=== PATIENT | male | born 1945 | race Caucasian/White ===

== ENCOUNTER → 2017-10-03 13:56 | Outpatient (CLI) | payer MEDICARE, SELFPAY ==
--- NOTE | 2017-10-03 13:55 | DI.REPORT_ITS ---
SYMPTOM/DIAGNOSIS: CHEST DISCOMFORT WITH EKG CHANGES, RT BBB I45.10 PA AND LATERAL CHEST: Comparison is made with 15 March 2004. The heart size is normal. There is calcification in the aortic arch which is normal in diameter. The lungs are well inflated and clear. Osteophytes are incidentally noted in the spine. IMPRESSION: No acute abnormality.
== END ==
PROVIDERS: PCP Family Medicine; Visit Provider Family Medicine
DX: I45.10 Unspecified right bundle-branch block (principal); R07.89 Other chest pain
CPT/HCPCS: 71046

== ENCOUNTER → 2017-10-10 00:36 | Outpatient (CLI) | payer MEDICARE, SELFPAY ==
--- NOTE | 2017-10-10 11:30 | MERGEMPI_ITS ---
*[facility]* *[facility]* [address] [place] [address] Myocardial Perfusion Imaging - SPECT Frandy protocol Date of study: 10/10/2017 *PATIENT PRESENTATION* Height: 172.7cm (68in) Blood Pressure: Weight: 81.8kg (180lb) BSA: 2m^2 Referring physician: Derian Carter Ordering physician: Earnest Olivarez Impressions: Normal perfusion by Tc99m Sestamibi Imaging. Summary: 1. Myocardial perfusion imaging: No myocardial perfusion defects noted. 2. The calculated left ventricular ejection fraction after stress: 56%. No left ventricular regional motion abnormality. Indication: R07.2. History: REASON FOR TESTING: PT C/O STERNAL CHEST PAIN ON GETTING OOB IN THE AM, LIFTING A HEAVY OBJECT, OR WITH EXERTION. IN ADDITION, PT STATED THAT HIS WALKING SPEED HAS DECREASED BY 20% IN THE PAST YEAR. ALSO, RECENT DX WITH NEW RBBB ON EKG. PMH: ANGIOPLASTY X2 WITH TOTAL OF 6 STENTS, FAMILY HX: FATHER-3V CABG AT AGE 62. SMOKING: NEVER SMOKER. EXCERCISE: WALKS 3-4 HRS DAILY. Risk factors: Family history of coronary artery disease. Cholesterol: 205mg/dl. HDL: 69mg/dl. LDL: 124mg/dl. Triglycerides: 60mg/dl. ALLERGIES: ATENOLOL. MEDICATIONS: ASPIRIN 81 MG DAILY, ATORVASTATIN CALCIUM 80 MG DAILY, NITROGLYCERIN 0.4 MG NEEDED, PAROXETINE HCL 20 MG DAILY. Imaging Technique: Protocol: Frandy protocol. Acquisition: Gated SPECT; 1 day - rest/stress. The patient was imaged in the supine position. Attenuation correction used. Isotope administration: - Rest. Tc[99m]-sestamibi. Dose: 10mCi. Injection time: 11:25 AM. Injection to stress time: 00:45. - Stress. Tc[99m]-sestamibi. Dose: 32mCi. Injection time: 01:06 PM. 1-2 min before end of exercise Baseline ECG: LAST EKG 10/03/17-SINUS RHYTHM, RIGHT BUNDLE BRANCH BLOCK. TODAY'S EKG-SINUS ARRYTHMIA, FIRST DEGREE AVB, RBBB. Stress protocol: + +---+ +---+ !Stage !HR !BP (mmHg) !Sat! + +---+ +---+ !Baseline supine !71 !134/70 (91) !---! + +---+ +---+ !Baseline standing !72 !134/78 (97) !---! + +---+ +---+ !Stage I; 1.7mph, 10degrees; 3 min !114!156/80 (105)!96%! + +---+ +---+ !Stage II; 2.5mph, 12degrees; 3 min!128!170/80 (110)!---! + +---+ +---+ !Recovery; 1 min !97 !160/78 (105)!---! + +---+ +---+ !Recovery; 3 min !69 !148/78 (101)!---! + +---+ +---+ !Recovery; 6 min !69 !136/80 (99) !---! + +---+ +---+ * Stress results: The rate-pressure product for the peak heart rate and blood pressure was 56125lo Hg/min. Stress ECG: EXCERCISE TESTING ENDED IN 5 MINS, 50 SECS DUE TO FATIGUE. MAX HR WAS 128, 87% OF TARGET. HYPERTENSIVE BLOOD PRESSURE RESPONSE. METS: 7.05. ECTOPY: NONE NOTED. ANGINA: NO REPORTED CHEST PAIN OR PRESSURE. ISCHEMIA: ST CHANGES NOTED MINIMALLY IN V2, MORE PRONOUNCE IN V3. FUNCTIONAL CAPACITY: MILDLY DIMINISHED CAPACITY. Myocardial perfusion: Imaging information: gated. No myocardial perfusion defects noted. Ventricular Function (Wall Motion): The calculated left ventricular ejection fraction after stress: 56%. No left ventricular regional motion abnormality. Study data: Richmond Nagel MD supervised and was readily available during the procedure. This study was interpreted by [facility]. Study status: Routine. Consent: The risks, benefits, and alternatives to the procedure were explained to the patient and informed consent was obtained. Procedure: Initial setup. A baseline ECG was recorded. Surface ECG leads and manual cuff blood pressure measurements were monitored. Heart sounds: Normal. Lung sounds: Normal. Treadmill exercise testing was performed using the Frandy protocol. Study completion: All catheters inserted during the procedure were removed. The patient tolerated the procedure well and was discharged from the lab. Discharge: The patient left the laboratory in stable condition. Birthdate: Patient birthdate: 1945. Sex: Gender: male. Study date: Study date: 10/10/2017. Study time: 07:20 AM. Electronically signed by Richmond Nagel MD 10/10/2017 17:31
== END ==
PROVIDERS: PCP Family Medicine; Visit Provider Nurse Practitioner Gerontology
DX: R07.2 Precordial pain (principal); I45.10 Unspecified right bundle-branch block; Z95.5 Presence of coronary angioplasty implant and graft; Z82.49 Family history of ischemic heart disease and other diseases of the circulatory system
CPT/HCPCS: 78452; 93016 ×2; 93017; 93018 ×2

== ENCOUNTER 2021-01-20 02:45 | Outpatient (CLI) | payer MEDICARE, SELFPAY ==
[2021-01-20 10:54] LABS: ALT 38 U/L (16-63); AST 28 U/L (15-37); Albumin 3.8 g/dL (3.4-5.0); Alkaline Phosphatase 110 U/L (46-116); Anion Gap 8.7 mmol/L (3-11); BUN 20 mg/dL (7-18); CO2 29.3 mmol/L (21.0-32.0); CREATININE 1.1 mg/dL (0.70-1.30); Calcium 8.7 mg/dL (8.5-10.1); Calculated LDL 167 mg/dL (<100); Chloride 103 mmol/L (98-107); Cholesterol 249 mg/dL (<200); Glucose 95 mg/dL (74-106); HDL Cholesterol 60 mg/dL (40-60); Potassium 4.2 mmol/L (3.5-5.1); Sodium 141 mmol/L (136-145); Total Protein 7.3 g/dL (6.4-8.2); Triglyceride 113 mg/dL (<150)
== END 2021-01-20 02:46 | disposition home or self-care (01) ==
LOC: LBO 02:45
PROVIDERS: PCP Family Medicine; Visit Provider Family Medicine
DX: I25.10 Atherosclerotic heart disease of native coronary artery without angina pectoris (principal)
CPT/HCPCS: 36415; 80053; 80061

== ENCOUNTER 2022-04-13 02:12 | Outpatient (CLI) | payer MEDICARE, SELFPAY ==
[2022-04-13 12:15] LABS: Abs Immature Grans 0.05 10^3/uL (0.0-0.06); Absolute Basophil Count 0.02 10^3/uL (0.0-0.2); Absolute Eosinophil Count 0.25 10^3/uL (0.0-0.7); Absolute Lymphocyte Count 2.14 10^3/uL (1.2-3.4); Absolute Monocyte Count 0.59 10^3/uL (0.1-0.8); Basophils % 0.2; Eosinophils % 3.1; HCT 43.2 % (40.0-50.0); HGB 14.2 g/dL (13.5-17.5); Immature Grans % 0.6; Lymphocytes % 26.3; MCH 28.4 pg (27.0-33.0); MCHC 32.9 % (32.0-36.0); MCV 86 fL (80-95); MPV 9.9 fL (8.0-11.0); Monocytes % 7.2; Neutrophils % 62.6; Platelet Count 260 10^3/uL (130-400); RDW 12.5 % (11.8-14.1); RDW-SD 39.5 fL; WBC 8.15 10^3/uL (4.4-10.8)
[2022-04-13 13:11] LABS: ALT 30 U/L (16-63); AST 23 U/L (15-37); Albumin 3.6 g/dL (3.4-5.0); Alkaline Phosphatase 111 U/L (46-116); Anion Gap 7.4 mmol/L (3-11); BUN 25 mg/dL (7-18); Bilirubin, Total 0.8 mg/dL (0.2-1.0); CO2 31.6 mmol/L (21.0-32.0); Calcium 8.9 mg/dL (8.5-10.1); Chloride 105 mmol/L (98-107); Estimated GFR 77.04 (mL/min/1.73m2); Glucose 86 mg/dL (74-106); Potassium 3.7 mmol/L (3.5-5.1); Sodium 144 mmol/L (136-145); TSH (W/Ref FT4) 1.86 uIU/mL (0.36-3.74); Total Protein 7.4 g/dL (6.4-8.2); Vitamin B12 343 pg/mL (193-986)
[2022-04-13 17:58] LABS: CRP, High Sensitivity 8.17 mg/L (See Note)
== END 2022-04-13 02:13 | disposition home or self-care (01) ==
LOC: LOS 02:12
PROVIDERS: PCP Family Medicine; Visit Provider Family Medicine
DX: G62.9 Polyneuropathy, unspecified (principal); R45.86 Emotional lability
CPT/HCPCS: 36415; 80053; 86141; 82607; 84443; 85025

== ENCOUNTER 2022-05-15 13:53 | Emergency (ER) | payer MEDICARE, SELFPAY ==
[2022-05-15] VITALS (25 sets, daily range): BP systolic 117–170; BP diastolic 64–112; PULSE 73–93; RESP 11–20; TEMP 36.3; O2SAT 95–99
--- NOTE | 2022-05-15 13:45 | RT.EKG_ITS ---
APPROVED REPORT Exam: Resting ECG Reason for Exam: dizzy Patient Location: E HR:82 bpm ECG Measurements Heart Rate [address] 180 P 61 QRSd 140 QRS 9 QT 423 T 2 QTc 496 Conclusion Sinus rhythm. Multiple ventricular premature complexes. Right bundle branch block
--- NOTE | 2022-05-15 14:30 | DI.CT_ITS ---
Exam(s) CT BRAIN NECK CTA EXAM: CT BRAIN NECK CTA CLINICAL HISTORY: Dizziness, difficulty walking. TECHNIQUE: Imaging Protocol: Axial CT angiography was performed with multi-slice acquisition and mu lti-planar and 3D reconstructions. CONTRAST MATERIAL: Intravenous: Omnipaque 350 Contrast volume:structured data in ml COMPARISON: No exams were available for comparison FINDINGS: CT Head W/O and W contrast: Ventricles and Extra axial spaces: Normal in size and morphology for the patient's age. Hemorrhage: None. Cerebral parenchyma: Normal. Midline shift: None. Brainstem/Cerebellum: Normal. Calvarium: Normal. Visualized Paranasal sinuses/Mastoids: Mucosal thickening throughout sinuses. Opacification of the r ight flat frontal multiple ethmoid sinuses. Mastoid air cells are clear. Soft Tissues: Severe shows cyst noted in the posterior left occipital region. Enhancement: Normal. CTA Brain W: Internal Carotid Arteries: Petrous: Normal. Cavernous: Normal. Cerebral: Normal. Middle Cerebral Arteries: Right: No aneurysm, occlusion or significant stenosis. Left: No aneurysm, occlusion or significant stenosis. Anterior Cerebral Arteries: Right: No aneurysm, occlusion or significant stenosis. Left: No aneurysm, occlusion or significant stenosis. Posterior cerebral Arteries: Right: No aneurysm, occlusion or significant stenosis. Left: No aneurysm, occlusion or significant stenosis. Vertebral Arteries: Right: No aneurysm, occlusion or significant stenosis. Left: No aneurysm, occlusion or significant stenosis. Basilar Artery: No aneurysm, occlusion or significant stenosis. CTA Neck W: Common Carotid: Right: No dissection, occlusion or significant stenosis. Left: No dissection, occlusion or significant stenosis. External Carotid: Right: No dissection, occlusion or significant stenosis. Left: No dissection, occlusion or significant stenosis. Internal Carotid: Right: Mixed calcified and noncalcified plaque at proximal right internal carotid artery which is juanis rly occlusive. Contrast noted distal to this level and the caliber is normal distal to this level. No dissection. Left: No dissection, occlusion or significant stenosis. Vertebral Artery: Right: No dissection, occlusion or significant stenosis. Left: No dissection, occlusion or significant stenosis. Lung Apices: Normal. Bones: No acute abnormality. Degenerative changes. Soft Tissues: Normal. IMPRESSION: 1. Normal CTA examination of the [place] of [place]. 2. CT: Sinus disease. Sebaceous cyst. No acute abnormality. Critical stenosis proximal right int ernal carotid artery secondary to significant plaque.. RADIATION DOSE DELIVERED: 2,177.33mGy.cm Total DLP DATA REPOSITORY: All CT scans at this facility are submitted to the National Radiology Data Registry (NRDR) Dose Index Registry (DIR) with the [employer] (ACR). RADIATION OPTIMIZATION: All CT scans at this facility use at least one of these dose optimization te chniques: automated exposure control; mA and/or kV adjustment per patient size (includes targeted exa ms where dose is matched to clinical indication); or iterative reconstruction.
[2022-05-15 14:44] LABS: Abs Immature Grans 0.04 10^3/uL (0.0-0.06); Absolute Basophil Count 0.03 10^3/uL (0.0-0.2); Absolute Eosinophil Count 0.24 10^3/uL (0.0-0.7); Absolute Lymphocyte Count 1.76 10^3/uL (1.2-3.4); Absolute Neutrophil Count 5.01 10^3/uL (1.2-6.7); Basophils % 0.4; Eosinophils % 3.1; HCT 40.6 % (40.0-50.0); HGB 13.7 g/dL (13.5-17.5); Immature Grans % 0.5; Lymphocytes % 22.9; MCH 28.5 pg (27.0-33.0); MCHC 33.7 % (32.0-36.0); MCV 84 fL (80-95); MPV 9.4 fL (8.0-11.0); Monocytes % 7.8; Neutrophils % 65.3; Platelet Count 200 10^3/uL (130-400); RBC 4.81 10^6/uL (4.36-5.78); RDW 12.5 % (11.8-14.1); RDW-SD 38.1 fL; WBC 7.68 10^3/uL (4.4-10.8)
[2022-05-15] MEDS: Meclizine 25 MG TAB PO (14:44)
[2022-05-15 15:02] LABS: ALT 28 U/L (16-63); AST 20 U/L (15-37); Albumin 3.3 g/dL (3.4-5.0); Alkaline Phosphatase 103 U/L (46-116); Anion Gap 7.5 mmol/L (3-11); BUN 21 mg/dL (7-18); Bilirubin, Total 0.6 mg/dL (0.2-1.0); CO2 29.5 mmol/L (21.0-32.0); CREATININE 1.2 mg/dL (0.70-1.30); Calcium 8.5 mg/dL (8.5-10.1); Chloride 107 mmol/L (98-107); Glucose 117 mg/dL (74-106); Magnesium 2.1 mg/dL (1.8-2.4); Potassium 3.7 mmol/L (3.5-5.1); Sodium 144 mmol/L (136-145); Total Protein 6.8 g/dL (6.4-8.2); Troponin I < 50 ng/L (<or=60)
[2022-05-15] MEDS: Normal Saline - Diluent 50 ML VIAL IJ (15:23)
[2022-05-15] MEDS: Omnipaque 350 MG/ML 100 ML BTL 85 ML IJ (15:23)
[2022-05-15] MEDS: Normal Saline Flush 10 ML SYR IVP (15:24)
--- NOTE | 2022-05-15 15:42 | ED.PROG_ITS ---
Date of service: 05/15/22 Time of Service: 15:42 Medical Decision Making I received signout on this elderly gentleman with vascular risk factors in the emergency department with dizziness and difficulty balancing since this morning. He reportedly had a normal CT head and is pending a CTA of his head and neck. Unfortunately MRIs not available. His original provider will touch base with him concerning the possibility of transfer for MRI to assess for TIA versus acute ischemic stroke. We will update documentation following CTA report. 4:30 PM According to the patient's original provider he would prefer to stay for observation if his CTA showed no acute abnormalities. His preliminary virtual radiology report is as follows: 1. No acute intracranial hemorrhage, mass effect or midline shift. 2. 2.9 cm subcutaneous cystic lesion in the left occipital region, possibly a large sebaceous cyst. Correlate with physical examination findings and compare with prior imaging. 3. Paranasal sinus disease noted. IMPRESSION: No large vessel stenosis or occlusion. IMPRESSION: 1. Apparent complete occlusion of the origin of the right ICA, although there may be trace flow present which is not visible. This is secondary to significant atherosclerotic plaque. 2. No dissection. We will have images pushed to [facility] neurology. 4:45 PM I met with the patient and he explained what had happened. He said that he was taking a 3 mile walk. This is a typical habit for the patient. He stopped for a break and subsequently had trouble walking. He felt as if he was drunk. He says that this occurs in the setting of worsening balance issues over the past several weeks. He also inadvertently was bumping into furniture at home which led him to come into the emergency department. He reports taking no routine medications. He is status post remote angiography in the setting of coronary artery disease. He is not a diabetic. He reports that his cyst in his left occipital region is known. On exam patient he is alert and oriented. He has no significant visual changes, no aphasia, no neglect. He has no dysmetria dysdiadochokinesia. His finger rolling is intact. He had a negative Romberg and he has no significant truncal ataxia. We will complete an ambulatory trial in the ED prior to touching base with [facility]. Anticipate discharge with outpatient MRI. Patient's strong preference is to be discharged as he is the care provider for his diabetic and he manages her medications. 5:33pm I spoke to Dr. Bradshaw from neuro at [facility]. She advised that the most conservative approach would be to hospitalize the patient. I advised her that the patient did not want hospitalization. As result, Dr. Bradshaw will have the patient seen in the TIA clinic at [facility]. Will initiate aspirin therapy for the next 5 days at 81 mg daily. I will order an MRI brain for the patient and have the patient seen by his primary care provider for a Holter monitor and an echocardiogram. I have asked health natural gas treating unit operator Ramila to have the patient seen by his primary care within the week for Holter monitor and an echocardiogram. I signed the form for MRI brain without contrast. If the patient has an acute ischemic CVA on MR my recommendation would be to contact [facility] for recommendations for secondary. If the patient's MRI is negative he can follow-up with his primary care provider. I also discharged him on meclizine as he did feel some symptomatic improvement in the ED. Discharge Plan Disposition Patient Disposition: Home Discharge Details Clinical Impression: Loss of balance Primary Care Provider: Earnest Olivarez ED Provider: Armando Cheek [place] Meds and New Rx's Prescriptions: New aspirin 81 mg capsule 81 mg PO DAILY Qty: 30 0RF meclizine 25 mg tablet 25 mg PO DAILY PRNQty: 30 0RF Discharge Instructions Additional Instructions: You were seen in the emergency department for your weakness and loss of balance. You are being prescribed a medicine which you can take for dizziness. There is also concern that you could have had a small stroke??a transient ischemic attack or an actual stroke. You are being scheduled for an MRI which will be completed next week. You will be seen in follow-up at [facility] in their transient ischemic attack clinic. Please schedule an appointment with your primary care provider next week. You are also receiving a prescription for aspirin which you should take as directed until seen by your primary care provider. You are also receiving a medication which you can take as needed for dizziness. If this medication does not help your dizziness please do not take it. This medication is called meclizine. Please return to the emergency department if develop weakness any trouble speaking or have any other concerns.
--- NOTE | 2022-05-15 15:47 | ED.GENADUL_ITS ---
Discharge Plan Disposition Patient Disposition: Home Discharge Details Clinical Impression: Loss of balance Primary Care Provider: Earnest Olivarez ED Provider: Armando Cheek Home Meds and New Rx's Prescriptions: New aspirin 81 mg capsule 81 mg PO DAILY Qty: 30 0RF meclizine 25 mg tablet 25 mg PO DAILY PRNQty: 30 0RF Discharge Instructions Additional Instructions: You were seen in the emergency department for your weakness and loss of balance. You are being prescribed a medicine which you can take for dizziness. There is also concern that you could have had a small stroke??a transient ischemic attack or an actual stroke. You are being scheduled for an MRI which will be completed next week. You will be seen in follow-up at [facility] in their transient ischemic attack clinic. Please schedule an appointment with your primary care provider next week. You are also receiving a prescription for aspirin which you should take as directed until seen by your primary care provider. You are also receiving a medication which you can take as needed for dizziness. If this medication does not help your dizziness please do not take it. This medication is called meclizine. Please return to the emergency department if develop weakness any trouble speaking or have any other concerns. Discharge Data Discharge Date/Time-TO BE ENTERED AT DEPARTURE: 05/15/22 18:06 Medical Decision Making Patient presenting to the emergency department for chief complaint of feeling off and difficulty walking. Patient stated this started around 9 AM this morning when he went to stand up after sitting down for meeting. Patient denies any headache chest pain shortness of breath difficulty breathing or other symptoms. States that he had a difficult time walking along with going up stairs after the event. Again patient adamantly denies all other symptoms. Physical exam does show horizontal nystagmus to left lateral gaze, negative Tonja- Hallpike, normal HEENT exam, no obvious abnormalities noted on cranial nerve exam, slight weakness noted to left lower extremity but otherwise no sensory Tory changes, negative Romberg's, exam otherwise unremarkable. Patient does have significant past history of coronary artery disease, hearing loss, esotropia and blindness of the right eye and hearing loss. We will plan on checking labs EKG and CTA imaging of the head. At this time unfortunately no MRI imaging is available. Review of patient's labs show an unremarkable nondiagnostic CBC, BUN slightly elevated at 21 with glucose of 117 otherwise negative, negative troponin, patient still pending urinalysis. Pending CTA imaging results discussed with patient no MRI availability patient did state that he would rather have additional testing while he is here will be admitted for observation if possible pending availability advanced testing if needed. Lab Data Lab results reviewed: Yes I reviewed the patient's lab results. HPI General Mode of arrival: ambulatory . Date/Time Provider Initiated Documentation: 05/15/22 14:09 . Limitations to Documentation: no limitations . Information obtained by: patient and RN notes reviewed . History of Present Illness 77 year old M presents to the emergency department with the chief complaint of Abnormal walking and weakness, described as moderate, Quality is described as other (Denies pain or discomfort), Patient started ex periencing this hour(s) (5) and it has been constant. No relieving factors improve symptom(s), Other factors that worsen symptoms (Standing up) . Patient notes no other symptoms.. Patient did receive the following treatments prior to arrival, none Related Data Home Medications Medication Instructions Recorded Confirmed aspirin 81 mg capsule 81 mg PO DAILY #30 caps 05/15/22 meclizine 25 mg tablet 25 mg PO DAILY PRN #30 tabs 05/15/22 Previous Rx's Medication Instructions Recorded aspirin 81 mg capsule 81 mg PO DAILY #30 caps 05/15/22 meclizine 25 mg tablet 25 mg PO DAILY PRN #30 tabs 05/15/22 Allergies Allergy/AdvReac Type Severity Reaction Status Date / Time atenolol AdvReac Intermediate near Verified 05/15/22 14:10 syncope tree pollen Allergy Uncoded 05/15/22 14:10 General Stated Complaint: Dizzy/Sync DAMARIS: 3 Review of Systems Constitutional Constitutional: Denies body ache(s), Denies chills, Denies fever(s), Denies headache(s) and Denies weakness Eyes Eyes: Denies change in vision ENT Ears, Nose, Mouth, and Throat: Denies vertigo, Reports dizziness and Denies headache(s) Cardiovascular Cardiovascular: Denies chest pain and Denies syncope Gastrointestinal Gastrointestinal: Reports nausea and Reports vomiting Neurologic Neurologic: Reports as per HPI, Denies vertigo, Reports dizziness, Denies syncope, Denies headache(s), Denies sensory deficit and Denies weakness PFSH All Active Problems (Updated 05/15/22 @ 17:47 by Armando Cheek MD) Loss of balance (Acute) Sebaceous cyst (Acute) Peripheral neuropathy (Acute) Corns and callosities (Acute) Pain, foot (Acute) Nail dystrophy (Acute) Impacted cerumen, bilateral (Acute) Depressive disorder, not elsewhere classified (Chronic 02/21/96) paxil just PRN negative thoughts ~6-7/month Sensorineural hearing loss, bilateral (Acute 07/25/14) Mood disturbance (Acute 11/23/16) intermittent Paroxetine rx since <1996, Mona Cutforth initially; uses Paroxetine 2-3 days for bad mood, ankur winter; also rx with exercise, walking 8-10 miles/day Other and unspecified hyperlipidemia (Acute 07/22/02) goal <70, known CAD; stopped lipitor 2013 Hearing loss (Acute 08/21/00) hearing aids Conductive hearing loss, external ear (Acute 07/25/14) Coronary atherosclerosis of cachil dehe coronary vessel (Acute 07/22/02) STENT X2 07/24; X4 06/24; NEAR SYNCOPE 08/30 DECR ATENOLOL TO 25 MG/D; and he stopped it altogether Medical History Pneumonia Hospitalized with PNA, when? Syncope and collapse (~2011) Cardiac evaluation .. Surgical History H/O angioplasty H/O vasectomy Family History Mother , heart issues at age 85. Heart disease Sister Primary lung cancer smoker Brother Bladder cancer Brother Cancer head tumor Social History Smoking/Tobacco Use Status: Never Smoking risk assessment performed?: Yes Alcohol Intake: current Alcohol Intake frequency: 0-2 drinks per day Alcohol type: wine Drug use: Never Substance use type: does not use Adopted: No Caregiver/Support person: No Foster care: No Household members: spouse Housing: house Number of Children: 5 number of grandchildren: 4 Communication Needs: Hard of Hearing and Corrective Lenses Education Level: master's degree Do you need help understanding health information?: Rarely current occupation: retired Pets and animals: No Sexually active: Yes Do you think of yourself as: straight/heterosexual Current gender identity: male What is your relationship status?: How often do you talk on the phone with friends or family?: twice per week How often do you get together with friends or relatives?: once per week Do you belong to any clubs or organized social groups?: no Panel score (0-1 are the most socially isolated patients): 2 What type of physical activity do you participate in: walking Duration: > 90 minutes/day Frequency: daily Nora/Christian: Alevism Special nora needs: No Seatbelt use: always Helmet use: Yes Drive intox or ride w/intox mobile lounge driver or operator: No Do you feel safe at home: Yes Do you feel safe in your relationship?: Yes Additional Social history: at bedside. Exam Const General: cooperative, no acute distress and well groomed Orientation: alert, awake and oriented x3 HENMT Head: normal to inspection Ears: hearing grossly normal bilaterally and TM's normal bilaterally Mouth: oral mucosae normal and moist mucous membranes Throat: posterior oropharynx normal Eyes Alignment and Position: alignment abnormal right esotropia Periorbital: periorbital findings normal Eyelids: eyelids normal Sclera: sclerae normal Cornea: corneas normal EOM: nystagmus (Horizontal- left eye to left lateral gaze) Neck Neck: normal visual inspection, full ROM and no meningeal signs Resp Effort & Inspection: normal respiratory effort and able to speak in complete sentences Auscultation: clear to auscultation bilaterally Cardio Rate: regular rate Rhythm: regular rhythm Heart Sounds: S1 normal and S2 normal Neuro General: patient alert, patient awake, patient oriented x3, tone normal, moves all extremities, CN's II-XI intact bilaterally and not confused Cranial Nerves: nystagmus (Horizontal- left eye to left lateral gaze) Cognition: normal cognition Speech: speech normal Motor: muscle tone normal throughout, no pronator drift, no movement abnormalities noted, no fasciculations and strength abnormal left distal lower extremity Sensory Exam: no sensory deficits noted Coordination: Romberg test normal and Does not sway with eyes open Course Vital Signs Vital signs: Vital Signs Temperature 36.3 C L 05/15/22 13:58 Pulse 81 05/15/22 13:58 Respiratory Rate 20 05/15/22 13:58 Blood Pressure 139/112 H 05/15/22 13:58 Pulse Oximetry 98 05/15/22 13:58 Temperature 36.3 C L 05/15/22 13:58 Pulse 81 05/15/22 13:58 Respiratory Rate 12 05/15/22 14:16 Respiratory Effort Normal, Non-Labored 05/15/22 14:16 Respiratory Depth Normal 05/15/22 14:16 Respiratory Pattern Normal 05/15/22 14:16 Blood Pressure 139/112 H 05/15/22 13:58 Blood Pressure Position Sitting 05/15/22 13:58 Pulse Oximetry 98 05/15/22 13:58 Lab/Test Results Lab/Test Results: Laboratory Tests Range/Units 05/15/22 05/15/22 14:35 14:35 WBC (4.4-10.8) 10^3/uL 7.68 RBC (4.36-5.78) 10^6/uL 4.81 Hgb (13.5-17.5) g/dL 13.7 Hct (40.0-50.0) % 40.6 MCV (80-95) fL 84 MCH (27.0-33.0) pg 28.5 MCHC (32.0-36.0) % 33.7 RDW (11.8-14.1) % 12.5 Plt Count (130-400) 10^3/uL 200 MPV (8.0-11.0) fL 9.4 Immature Gran % 0.5 Neutrophils % 65.3 Lymphocytes % 22.9 Monocytes % 7.8 Eosinophils % 3.1 Basophils % 0.4 Nucleated RBC % (0.0-0.3) % 0.0 Absolute Neutrophils (1.2-6.7) 10^3/uL 5.01 Absolute Lymphocytes (1.2-3.4) 10^3/uL 1.76 Absolute Monocytes (0.1-0.8) 10^3/uL 0.60 Absolute Eosinophils (0.0-0.7) 10^3/uL 0.24 Absolute Basophils (0.0-0.2) 10^3/uL 0.03 Sodium (136-145) mmol/L 144 Potassium (3.5-5.1) mmol/L 3.7 Chloride (98-107) mmol/L 107 Carbon Dioxide (21.0-32.0) mmol/L 29.5 Anion Gap (3-11) mmol/L 7.5 BUN (7-18) mg/dL 21 H Creatinine (0.70-1.30) mg/dL 1.2 Est GFR (CKD-EPI 2020) (mL/min/1.73m2) 61.90 Glucose (74-106) mg/dL 117 H Calcium (8.5-10.1) mg/dL 8.5 Magnesium (1.8-2.4) mg/dL 2.1 Total Bilirubin (0.2-1.0) mg/dL 0.6 AST (15-37) U/L 20 ALT (16-63) U/L 28 Alkaline Phosphatase (46-116) U/L 103 Troponin I (<or=60) ng/L < 50 Total Protein (6.4-8.2) g/dL 6.8 Albumin (3.4-5.0) g/dL 3.3 L PAWSS Have you Been Recently Intoxicated or Drunk Within the Last 30 days?: No Have you Ever Experienced Previous Episodes of Alcohol Withdrawal?: No Have you ever Experienced Withdrawal Seizures?: No Have you ever Experienced Delirium Tremens(DT)s?: No Have you ever undergone Alcohol Rehabilitation Treatment (i.e, inpt ot outpatient treatment programs)?: No Have you ever Experienced Blackouts?: No Have you ever Combined Alcohol with other Downers within the last 90 days?: No Have you ever Combined Alcohol with any other Substance of Abuse during the last 90 days?: No Positive Blood Alcohol level on Presentation? [PCS.BAL]: No Evidence of Increased Autonomic Activity (i.e. HR>120, tremor, sweating, agitation, nausea)?: No Result: 0
[2022-05-15 15:57] LABS: Bilirubin Negative (Negative); Blood Negative (Negative); Clarity Clear (Clear); Glucose Negative (Negative); Ketones Negative (Negative); Leukocyte Esterase Negative (Negative); Nitrite Negative (Negative); Specific Gravity 1.025 (1.005-1.025); Urobilinogen 0.2 mg/dL (Up to 0.2)
--- NOTE | 2022-05-15 16:27 | DI.VRAD_ITS ---
PROCEDURE INFORMATION: Exam: CT Head Without Contrast Exam date and time: 05/15/2022 3:21 PM Clinical indication: Dizziness and giddiness; Patient HX: Dizziness, difficulty walking TECHNIQUE: Imaging protocol: Computed tomography of the head without contrast. COMPARISON: No relevant prior studies available. FINDINGS: Brain: There is no acute intracranial hemorrhage, mass effect or midline shift. There is no large acute territorial cerebral infarct. Cerebral ventricles: No ventriculomegaly. Paranasal sinuses: Visualized sinuses are unremarkable. No fluid levels. Mastoid air cells: Visualized mastoid air cells are well aerated. Bones/joints: No acute fracture. There is prominent mucosal thickening in the paranasal sinuses, greatest in the right frontal, bilateral ethmoid regions. Soft tissues: There is a 2.9 x 2.7x 2.0 cm cystic structure in the subcutaneous tissues of left occipital region. IMPRESSION: 1. No acute intracranial hemorrhage, mass effect or midline shift. 2. 2.9 cm subcutaneous cystic lesion in the left occipital region, possibly a large sebaceous cyst. Correlate with physical examination findings and compare with prior imaging. 3. Paranasal sinus disease noted. PROCEDURE INFORMATION: Exam: CTA Head With Contrast, Arteriography Exam date and time: 05/15/2022 3:21 PM Age: 77 years old Clinical indication: Dizziness and giddiness; Patient HX: Dizziness, difficulty walking TECHNIQUE: Imaging protocol: Computed tomographic angiography of the head with contrast. Exam focused on the arteries. 3D rendering (Not supervised by radiologist): MIP and/or 3D reconstructed images were created by the technologist. COMPARISON: No relevant prior studies available. FINDINGS: ANTERIOR CIRCULATION: Right internal carotid artery: Intracranial segment is patent with no significant stenosis. No aneurysm. Right middle cerebral artery: No occlusion or significant stenosis. No aneurysm. Right anterior cerebral artery: No occlusion or significant stenosis. No aneurysm. Left internal carotid artery: Intracranial segment is patent with no significant stenosis. No aneurysm. Left middle cerebral artery: No occlusion or significant stenosis. No aneurysm. Left anterior cerebral artery: No occlusion or significant stenosis. No aneurysm. POSTERIOR CIRCULATION: Right vertebral artery: No occlusion or significant stenosis. No aneurysm. Left vertebral artery: No occlusion or significant stenosis. No aneurysm. Basilar artery: No occlusion or significant stenosis. No aneurysm. Right posterior cerebral artery: No occlusion or significant stenosis. No aneurysm. Left posterior cerebral artery: No occlusion or significant stenosis. No aneurysm. Brain: No definite mass, mass effect, or midline shift. Cerebral ventricles: No ventriculomegaly. Bones/joints: Unremarkable. No acute fracture. Soft tissues: Unremarkable. IMPRESSION: No large vessel stenosis or occlusion. PROCEDURE INFORMATION: Exam: CTA Neck With Contrast Exam date and time: 05/15/2022 3:21 PM Age: 77 years old Clinical indication: Dizziness and giddiness; Patient HX: Dizziness, difficulty walking TECHNIQUE: Imaging protocol: Computed tomographic angiography of the neck with contrast. 3D rendering (Not supervised by radiologist): MIP and/or 3D reconstructed images were created by the technologist. COMPARISON: CR CHEST 2 VIEWS PA,LAT 10/03/2017 1:55 PM FINDINGS: Right common carotid artery: No stenosis. No dissection or occlusion. Right internal carotid artery: There is apparent occlusion of the origin of right ICA secondary to significant atherosclerotic plaque. However there may be trace flow in this region due to adjacent contrast distally. Right external carotid artery: No occlusion or stenosis of the origin. Left common carotid artery: No stenosis. No dissection or occlusion. Left internal carotid artery: No stenosis of the extracranial segment. No dissection or occlusion. Left external carotid artery: No occlusion or stenosis of the origin. Right vertebral artery: No stenosis. No dissection or occlusion. Left vertebral artery: No stenosis. No dissection or occlusion. Soft tissues: Normal. No significant soft tissue swelling. Bones/joints: No acute fracture. IMPRESSION: 1. Apparent complete occlusion of the origin of the right ICA, although there may be trace flow present which is not visible. This is secondary to significant atherosclerotic plaque. 2. No dissection. REFERENCES: NASCET CRITERIA. The degree of stenosis in the cervical segment of the internal carotid artery is based on NASCET criteria. Normal is no stenosis. Mild is less than 50% stenosis. Moderate is 50-69% stenosis. Severe is 70% to 99% stenosis. Total occlusion is no detectable patent lumen. Dictated and Authenticated by: Keiko Jennings MD. Ordering:AMEENA Dash MD
--- NOTE | 2022-05-15 17:47 | NUR.NOTE ---
Referral made by Dr. Cheek for patient to follow up in one week with PCP for weakness, patient will need a holter monitor and an Echo. Put the referral in the caremanger's box for assistance.Nursing Note:
[2022-05-15] MEDS: Aspirin 81 MG CHEW PO (18:00)
== END 2022-05-15 18:06 | disposition home or self-care (01) ==
PROVIDERS: Nurse Practitioner Family; Emergency Provider Emergency Medicine; PCP Family Medicine
DX: R26.2 Difficulty in walking, not elsewhere classified (principal); H55.00 Unspecified nystagmus; H50.00 Unspecified esotropia
CPT/HCPCS: 36415; 70496; 70498; 80053; 93005; 99285; 81003; 83735; 84484; 85025; 93010; 99284; J3490

== ENCOUNTER 2022-05-16 12:08 | Observation (INO) | payer MEDICARE, SELFPAY ==
[2022-05-16 12:22] VITALS: BP 152/61; PULSE 64; RESP 18; O2SAT 98
--- NOTE | 2022-05-16 12:30 | DI.CT_ITS ---
Exam(s) CT HEAD WO EXAM: CT HEAD WO CLINICAL HISTORY: Slurred speech. TECHNIQUE: Imaging Protocol: Axial computed tomography images with coronal and sagittal reformatted images were created and reviewed COMPARISON: CT CT BRAIN NECK CTA from 05/15/2022 FINDINGS: Ventricles and Extra axial spaces: Normal in size and morphology for the patient's age. Hemorrhage: None. Cerebral parenchyma: Minimal white matter changes of small vessel disease. Midline shift: None. Brainstem/Cerebellum: Normal. Calvarium: Normal. Visualized Paranasal sinuses/Mastoids: Clear. Soft Tissues: Large sebaceous cyst left upper neck. IMPRESSION: No acute intracranial process. RADIATION DOSE DELIVERED: 748.05mGy.cm Total DLP DATA REPOSITORY: All CT scans at this facility are submitted to the National Radiology Data Registry (NRDR) Dose Index Registry (DIR) with the [employer] ([employer]). RADIATION OPTIMIZATION: All CT scans at this facility use at least one of these dose optimization te chniques: automated exposure control; mA and/or kV adjustment per patient size (includes targeted exa ms where dose is matched to clinical indication); or iterative reconstruction.
--- NOTE | 2022-05-16 13:40 | DI.VRAD_ITS ---
PROCEDURE INFORMATION: Exam: CT Head Without Contrast Exam date and time: 05/16/2022 1:17 PM Age: 77 years old Clinical indication: Speech disturbance; Slurred speech; Patient HX: PT had cta head/neck 1 day prior TECHNIQUE: Imaging protocol: Computed tomography of the head without contrast. Radiation optimization: All CT scans at this facility use at least one of these dose optimization techniques: automated exposure control; mA and/or kV adjustment per patient size (includes targeted exams where dose is matched to clinical indication); or iterative reconstruction. COMPARISON: CT BRAIN NECK CTA 05/15/2022 3:21 PM FINDINGS: Brain: No acute intracranial hemorrhage.. There is mild diffuse heterogeneity of the white matter attenuation, consistent with chronic white matter ischemic changes. Mild cerebral atrophy Cerebral ventricles: No ventriculomegaly. Paranasal sinuses: Opacities in the ethmoid sinuses and maxillary sinuses and sphenoid sinuses may represent sinusitis Mastoid air cells: Visualized mastoid air cells are well aerated. Bones/joints: See Soft tissues finding. Soft tissues: 2.7 cm soft tissue mass in the posterior extra calvarial soft tissues. Series 2, image 3 IMPRESSION: No acute intracranial hemorrhage.. Dictated and Authenticated by: Cortez Proctor MD. Ordering:AMEENA Dash MD
--- NOTE | 2022-05-16 14:17 | ED.GENADUL_ITS ---
Discharge Plan Disposition Patient Disposition: Admit to [facility] Discharge Details Clinical Impression: Loss of balance, Suspected cerebrovascular accident Primary Care Provider: Earnest Olivarez ED Provider: Hardy Jeffrey Home Meds and New Rx's Prescriptions: No Action aspirin 81 mg capsule 81 mg PO DAILY Qty: 30 0RF meclizine 25 mg tablet 25 mg PO DAILY PRNQty: 30 0RF Medical Decision Making Patient representing to the emergency department for chief complaint of worsening weakness and intermittent slurred speech. Patient was seen by myself yesterday for loss of balance. Patient was signed out to Dr. Cheek who offered patient admission for further monitoring and further testing including MRI imaging when available. At that time patient refused admission and stated he would prefer to go home. Due to having worsening of symptoms today he is representing to the emergency department. He denies any headache, syncope, ch est pain or other drastic changes in symptoms. On yesterday's CTA there was noted a per radiologist report an apparent complete occlusion of the origin of the right ICA, although there may be trace flow present which is not visible. This is secondary to significant atherosclerotic plaque. Physical exam today shows only slightly increased weakness of the left lower extremity but no other changes in exam noted today. We will plan on repeating head CT imaging but I do feel that it would be beneficial for patient to stay for MRI imaging and further monitoring given worsening of symptoms. Even at presentation yesterday patient was outside the window for thrombolytics so patient is not a candidate for any emergent interventions at this time. Patient denies any pain or discomfort at my time of assessment. Review of repeat CT imaging shows no acute intracranial abnormality in comparison of yesterday's scan. Will contact hospitalist to discuss admission of patient for further monitoring and MRI imaging when available. Patient is in agreement with this plan of care. Imaging Data Radiologic Study: Imaging: CT Scan Radiologist's impression: Exam(s) PROCEDURE INFORMATION: Exam: CT Head Without Contrast Exam date and time: 05/16/2022 1:17 PM Age: 77 years old Clinical indication: Speech disturbance; Slurred speech; Patient HX: PT had cta head/neck 1 day prior TECHNIQUE: Imaging protocol: Computed tomography of the head without contrast. Radiation optimization: All CT scans at this facility use at least one of these dose optimization techniques: automated exposure control; mA and/or kV adjustment per patient size (includes targeted exams where dose is matched to clinical indication); or iterative reconstruction. COMPARISON: CT BRAIN NECK CTA 05/15/2022 3:21 PM FINDINGS: Brain: No acute intracranial hemorrhage.. There is mild diffuse heterogeneity of the white matter attenuation, consistent with chronic white matter ischemic changes. Mild cerebral atrophy Cerebral ventricles: No ventriculomegaly. Paranasal sinuses: Opacities in the ethmoid sinuses and maxillary sinuses and sphenoid sinuses may represent sinusitis Mastoid air cells: Visualized mastoid air cells are well aerated. Bones/joints: See Soft tissues finding. Soft tissues: 2.7 cm soft tissue mass in the posterior extra calvarial soft tissues. Series 2, image 3 IMPRESSION: No acute intracranial hemorrhage.. HPI General Mode of arrival: wheelchair . Date/Time Provider Initiated Documentation: 05/16/22 12:09 . Limitations to Documentation: no limitations . Information obtained by: patient, family and RN notes reviewed . History of Present Illness 77 year old M presents to the emergency department with the chief complaint of Increased weakness, described as moderate and similar to prior episodes, and is localized to the lower extremity. Patient reports no radiation. and it has been constant. No relieving factors improve symptom(s), No exacerbating factors reported . Patient notes no other symptoms.. Patient did receive the following treatments prior to arrival, none Related Data Home Medications Medication Instructions Recorded Confirmed aspirin 81 mg capsule 81 mg PO DAILY #30 caps 05/15/22 05/16/22 meclizine 25 mg tablet 25 mg PO DAILY PRN #30 tabs 05/15/22 05/16/22 Previous Rx's Medication Instructions Recorded aspirin 81 mg capsule 81 mg PO DAILY #30 caps 05/15/22 meclizine 25 mg tablet 25 mg PO DAILY PRN #30 tabs 05/15/22 Allergies Allergy/AdvReac Type Severity Reaction Status Date / Time atenolol AdvReac Intermediate near Verified 05/16/22 12:25 syncope tree pollen Allergy Uncoded 05/16/22 12:25 General Stated Complaint: GenMedical DAMARIS: 3 Review of Systems Constitutional Constitutional: Denies body ache(s), Denies chills, Denies fever(s), Denies headache(s) and Reports weakness Eyes Eyes: Denies change in vision ENT Ears, Nose, Mouth, and Throat: Denies dizziness and Denies headache(s) Cardiovascular Cardiovascular: Denies chest pain and Denies syncope Gastrointestinal Gastrointestinal: Denies nausea and Denies vomiting Musculoskeletal Musculoskeletal: Reports abnormal gait Neurologic Neurologic: Reports as per HPI, Reports abnormal gait, Denies dizziness, Denies syncope, Denies headache(s), Denies sensory deficit, Denies paresthesias and Reports weakness PFSH All Active Problems (Updated 05/16/22 @ 15:54 by Hardy Jeffrey NP) Loss of balance (Acute) Suspected cerebrovascular accident (Acute) Sebaceous cyst (Acute) Peripheral neuropathy (Acute) Corns and callosities (Acute) Pain, foot (Acute) Nail dystrophy (Acute) Impacted cerumen, bilateral (Acute) Depressive disorder, not elsewhere classified (Chronic 02/21/96) paxil just PRN negative thoughts ~6-7/month Sensorineural hearing loss, bilateral (Acute 07/25/14) Mood disturbance (Acute 11/23/16) intermittent Paroxetine rx since <1996, Mona Cutforth initially; uses Paroxetine 2-3 days for bad mood, ankur winter; also rx with exercise, walking 8-10 miles/day Other and unspecified hyperlipidemia (Acute 07/22/02) goal <70, known CAD; stopped lipitor 2013 Hearing loss (Acute 08/21/00) hearing aids Conductive hearing loss, external ear (Acute 07/25/14) Coronary atherosclerosis of [place] coronary vessel (Acute 07/22/02) STENT X2 07/24; X4 06/24; NEAR SYNCOPE 08/30 DECR ATENOLOL TO 25 MG/D; and he stopped it altogether Medical History Pneumonia Hospitalized with PNA, when? Syncope and collapse (~2011) Cardiac evaluation .. Surgical History H/O angioplasty H/O vasectomy Family History Mother , heart issues at age 85. Heart disease Sister Primary lung cancer smoker Brother Bladder cancer Brother Cancer head tumor Social History Smoking/Tobacco Use Status: Never Smoking risk assessment performed?: Yes Alcohol Intake: current Alcohol Intake frequency: 0-2 drinks per day Alcohol type: wine Drug use: Never Substance use type: does not use Adopted: No Caregiver/Support person: No Foster care: No Household members: spouse Housing: house Number of Children: 5 number of grandchildren: 4 Communication Needs: Hard of Hearing and Corrective Lenses Education Level: master's degree Do you need help understanding health information?: Rarely current occupation: retired Pets and animals: No Sexually active: Yes Do you think of yourself as: straight/heterosexual Current gender identity: male What is your relationship status?: How often do you talk on the phone with friends or family?: twice per week How often do you get together with friends or relatives?: once per week Do you belong to any clubs or organized social groups?: no Panel score (0-1 are the most socially isolated patients): 2 What type of physical activity do you participate in: walking Duration: > 90 minutes/day Frequency: daily Nora/Scientologist: [employer] Special nora needs: No Seatbelt use: always Helmet use: Yes Drive intox or ride w/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 Exam Const General: cooperative, no acute distress and well groomed Orientation: alert, awake and oriented x3 HENMT Head: normal to inspection Ears: hearing grossly normal bilaterally Mouth: oral mucosae normal and moist mucous membranes Throat: posterior oropharynx normal Eyes Alignment and Position: alignment abnormal right esotropia Periorbital: periorbital findings normal Eyelids: eyelids normal Sclera: sclerae normal Cornea: corneas normal EOM: nystagmus (Horizontal- left eye to left lateral gaze) Neck Neck: normal visual inspection, full ROM and no meningeal signs Resp Effort & Inspection: normal respiratory effort and able to speak in complete sentences Auscultation: clear to auscultation bilaterally Cardio Rate: regular rate Rhythm: regular rhythm Heart Sounds: S1 normal and S2 normal Neuro General: patient alert, patient awake, patient oriented x3, tone normal, moves all extremities, CN's II-XI intact bilaterally and not confused Cranial Nerves: nystagmus (Horizontal- left eye to left lateral gaze) Cognition: normal cognition Speech: speech normal Motor: muscle tone normal throughout, no pronator drift, no movement abnormalities noted, no fasciculations and strength abnormal Sensory Exam: no sensory deficits noted Coordination: Romberg test normal and Does not sway with eyes open Course Vital Signs Vital signs: Vital Signs Pulse 64 05/16/22 12:22 Respiratory Rate 18 05/16/22 12:22 Blood Pressure 152/61 H 05/16/22 12:22 Pulse Oximetry 98 05/16/22 12:22 Pulse 64 05/16/22 12:22 Respiratory Rate 18 05/16/22 12:22 Respiratory Effort Normal 05/16/22 12:25 Blood Pressure 152/61 H 05/16/22 12:22 Blood Pressure Position Supine 05/16/22 12:22 Pulse Oximetry 98 05/16/22 12:22 Oxygen Delivery Method Room Air 05/16/22 12:22 Oxygen Flow Rate 0 05/16/22 12:22 Pain Level 0 05/16/22 12:22
--- NOTE | 2022-05-16 15:01 | HPE_ITS ---
Date of service: 05/16/22 Time of Service: 15:01 Assessment and Plan Assessment and plan (1) Suspected cerebrovascular accident: Status: Acute Assessment and plan: Pt with dysarthria and left side facial muscle weakness. Also with impaired balance; noted over the last several weeks. Feels like he is drunk. Symptoms began the morning of 05/15/22. He presented to the ED then but decided to not be admitted for further w/u and an MRI on Tuesday after his CTA. CT brain w/o acute findings. CTA: No acute intracranial hemorrhage, mass effect or midline shift. 2. 2.9 cm subcutaneous cystic lesion in the left occipital region, possibly a large sebaceous cyst. Correlate with physical ex amination findings and compare with prior imaging. 3. Paranasal sinus disease noted. IMPRESSION: No large vessel stenosis or occlusion. IMPRESSION: 1. Apparent complete occlusion of the origin of the right ICA, although there may be trace flow present which is not visible. This is secondary to significant atherosclerotic plaque. 2. No dissection. CVA w/u to include MRI brain, neurology consult, cont. ASA 81 mg initiated in ED on 05/15, PT/OT/speech, lipid panel, telemetry, echocardiogram. Plavix? If symptoms escalate would benefit from heparin drip. Discuss with neurology and vascular surgery. (2) Coronary atherosclerosis of [place] coronary vessel: Status: Acute Assessment and plan: He was not previously on an aspirin. Not on a BB. No c/o anginal sxs. (3) Discharge planning issues: Status: Acute Assessment and plan: Admitted as observation. Disposition pending further w/u. History of Present Illness History of Present Illness Chief Complaint: unsteady gait and slurred speech. Narrative: This is a 77 yo male with a PMH of CAD with stnet x2 (07/24), depression, peripheral neuropathy. He initially presented to the [facility] ED on 05/16/22 with c/o difficulty walking (feeling drunk). This was noted at 9 AM that morning. W/U included a CTA head that showed 1. No acute intracranial hemorrhage, mass effect or midline shift. 2. 2.9 cm subcutaneous cystic lesion in the left occipital region, possibly a large sebaceous cyst. Correlate with physical examination findings and compare with prior imaging. 3. Paranasal sinus disease noted. IMPRESSION: No large vessel stenosis or occlusion. IMPRESSION: 1. Apparent complete occlusion of the origin of the right ICA, although there may be trace flow present which is not visible. This is secondary to significant atherosclerotic plaque. 2. No dissection. He did not want to remain in the hospital waiting for an MRI and decided to go home and have further w/u as outpt. Dr Bradshaw neurology at [facility] was contacted by ED physician. She advised that the most conservative approach would be to hospitalize the patient.? Advised her that the patient did not want hospitalization.? As result, Dr. Bradshaw will have the patient seen in the TIA clinic at [facility].? Initiated aspirin therapy for the next 5 days at 81 mg daily.? Ordered an MRI brain for the patient and have the patient seen by his primary care provider for a Holter monitor and an echocardiogram. He returned the following day with worsening unsteady gait, feeling weak and at that time endorsed intermittent slurred speech. Repeat CT brain showed no acute findings. He did not c/o any focal muscle weakness. Admitted for further w/u and treatment. Review of Systems All systems reviewed & are unremarkable except as noted in HPI and below PFSH All Active Problems Discharge planning issues (Acute) Loss of balance (Acute) Suspected cerebrovascular accident (Acute) Sebaceous cyst (Acute) Peripheral neuropathy (Acute) Corns and callosities (Acute) Pain, foot (Acute) Nail dystrophy (Acute) Impacted cerumen, bilateral (Acute) Depressive disorder, not elsewhere classified (Chronic 02/21/96) paxil just PRN negative thoughts ~6-7/month Sensorineural hearing loss, bilateral (Acute 07/25/14) Mood disturbance (Acute 11/23/16) intermittent Paroxetine rx since <1996, Mona Cutforth initially; uses Paroxetine 2-3 days for bad mood, ankur winter; also rx with exercise, walking 8-10 miles/day Other and unspecified hyperlipidemia (Acute 07/22/02) goal <70, known CAD; stopped lipitor 2013 Hearing loss (Acute 08/21/00) hearing aids Conductive hearing loss, external ear (Acute 07/25/14) Coronary atherosclerosis of [place] coronary vessel (Acute 07/22/02) STENT X2 07/24; X4 06/24; NEAR SYNCOPE 08/30 DECR ATENOLOL TO 25 MG/D; and he stopped it altogether Medical History Pneumonia Hospitalized with PNA, when? Syncope and collapse (~2011) Cardiac evaluation .. Surgical History H/O angioplasty H/O vasectomy Family History Mother , heart issues at age 85. Heart disease Sister Primary lung cancer smoker Brother Bladder cancer Brother Cancer head tumor Social History Smoking/Tobacco Use Status: Never Smoking risk assessment performed?: Yes Alcohol Intake: current Alcohol Intake frequency: 0-2 drinks per day Alcohol type: wine Drug use: Never Substance use type: does not use Adopted: No Caregiver/Support person: No Foster care: No Household members: spouse Housing: house Number of Children: 5 number of grandchildren: 4 Communication Needs: Hard of Hearing and Corrective Lenses Education Level: master's degree Do you need help understanding health information?: Rarely current occupation: retired Pets and animals: No Sexually active: Yes Do you think of yourself as: straight/heterosexual Current gender identity: male What is your relationship status?: How often do you talk on the phone with friends or family?: twice per week How often do you get together with friends or relatives?: once per week Do you belong to any clubs or organized social groups?: no Panel score (0-1 are the most socially isolated patients): 2 What type of physical activity do you participate in: walking Duration: > 90 minutes/day Frequency: daily Nora/Hinduism: Adventist Special nora needs: No Seatbelt use: always Helmet use: Yes Drive intox or ride w/intox horse and wagon driver: No Do you feel safe at home: Yes Do you feel safe in your relationship?: Yes Additional Social history: at bedside. Meds Allergies and Home Medications Allergies Allergy/AdvReac Type Severity Reaction Status Date / Time atenolol AdvReac Intermediate near Verified 05/16/22 12:25 syncope tree pollen Allergy Uncoded 05/16/22 12:25 Home Medications Medication Instructions Recorded Confirmed Type aspirin 81 mg capsule 81 mg PO DAILY #30 caps 05/15/22 05/16/22 Rx meclizine 25 mg tablet 25 mg PO DAILY PRN #30 tabs 05/15/22 05/16/22 Rx Exam Narrative Exam Narrative: Pleasant and cooperative. Const General: no acute distress and well groomed Orientation: alert, awake and oriented x3 [facility] Head: normal to inspection Ears: hearing grossly abnormal bilaterally (decreased hearing acuity / chronic. ) Mouth: oral mucosae normal and moist mucous membranes Eyes Alignment and Position: alignment abnormal right esotropia Periorbital: periorbital findings normal Eyelids: eyelids normal Sclera: sclerae normal EOM: nystagmus (Horizontal- left eye to left lateral gaze) Neck Neck: normal visual inspection, full ROM and no meningeal signs Resp Effort & Inspection: normal respiratory effort and able to speak in complete sentences Auscultation: clear to auscultation bilaterally Cardio Rate: regular rate Rhythm: regular rhythm Heart Sounds: S1 normal and S2 normal GI Inspection: non-distended Palpation: soft and nontender Skin General skin exam: no rashes or lesions noted Neuro General: patient alert, patient awake, patient oriented x3, tone normal, moves all extremities and not confused Cranial Nerves: facial strength abnormal (left perioral muscle weakness. ), tongue midline and nystagmus (Horizontal- left eye to left lateral gaze) Cognition: normal cognition Speech: speech normal Motor: muscle tone normal throughout, no pronator drift (Unable to raise left arm as high as right; states should problem is the alexa), no movement abnormalities noted and no fasciculations Sensory Exam: no sensory deficits noted Extrem General: no pedal edema and no calf tenderness Psych Appearance: grossly normal Affect: normal affect Results Labs 05/16/22 20:17 05/16/22 20:17 Last Vital Signs Pulse 64 05/16/22 12:22 Resp 18 05/16/22 12:22 BP 152/61 H 05/16/22 12:22 Pulse Ox 98 05/16/22 12:22 Time Spent Time spent with Patient: 40-54 minutes Time was spent: preparing to see the patient(eg.review tests), ordering medications,tests, procedures, referring, communicating with other health director of critical care, indepentently interpreting results and counseling the patient
[2022-05-16 15:52] VITALS: RESP 18
[2022-05-16 16:12] LABS: Source Nasal/Nares
[2022-05-16 16:43] LABS: COVID-19 PCR Negative (Negative)
[2022-05-16 17:04] VITALS: BP 145/76; PULSE 82; RESP 16; TEMP 36.6; O2SAT 96
[2022-05-16 17:15] VITALS: BP 145/76; PULSE 83; RESP 16; TEMP 36.6; O2SAT 96
[2022-05-16 18:05] VITALS: PULSE 81
[2022-05-16 19:56] VITALS: BP 146/92; PULSE 77; RESP 18; TEMP 37.1; O2SAT 97
[2022-05-16] MEDS: Atorvastatin 40 MG TAB 80 MG PO (20:09)
[2022-05-16 20:29] LABS: Abs Immature Grans 0.02 10^3/uL (0.0-0.06); Absolute Basophil Count 0.03 10^3/uL (0.0-0.2); Absolute Eosinophil Count 0.24 10^3/uL (0.0-0.7); Absolute Lymphocyte Count 1.79 10^3/uL (1.2-3.4); Absolute Monocyte Count 0.64 10^3/uL (0.1-0.8); Absolute Neutrophil Count 4.07 10^3/uL (1.2-6.7); Basophils % 0.4; Eosinophils % 3.5; HCT 39.8 % (40.0-50.0); HGB 13.8 g/dL (13.5-17.5); Immature Grans % 0.3; Lymphocytes % 26.4; MCH 28.9 pg (27.0-33.0); MCHC 34.7 % (32.0-36.0); MCV 83 fL (80-95); MPV 9.5 fL (8.0-11.0); Monocytes % 9.4; Platelet Count 200 10^3/uL (130-400); RBC 4.77 10^6/uL (4.36-5.78); RDW 12.5 % (11.8-14.1); RDW-SD 38.3 fL; WBC 6.79 10^3/uL (4.4-10.8)
[2022-05-16 20:46] LABS: Anion Gap 4.7 mmol/L (3-11); BUN 18 mg/dL (7-18); CO2 29.3 mmol/L (21.0-32.0); CREATININE 1.4 mg/dL (0.70-1.30); Calcium 8.4 mg/dL (8.5-10.1); Chloride 107 mmol/L (98-107); Estimated GFR 51.45 (mL/min/1.73m2); Glucose 106 mg/dL (74-106); Magnesium 2.1 mg/dL (1.8-2.4); Sodium 141 mmol/L (136-145); Troponin I < 50 ng/L (<or=60)
[2022-05-17] VITALS (10 sets, daily range): BP systolic 134–175; BP diastolic 22–88; PULSE 67–94; RESP 14–18; TEMP 36.4–37.3; O2SAT 95–99
[2022-05-17] MEDS: Clopidogrel 300 MG TAB PO (00:45)
[2022-05-17 07:41] LABS: Calculated LDL 120 mg/dL (<100); Cholesterol 200 mg/dL (<200); HDL Cholesterol 56 mg/dL (40-60); Triglyceride 123 mg/dL (<150)
[2022-05-17] MEDS: Aspirin 81 MG CHEW PO (07:49)
--- NOTE | 2022-05-17 08:00 | DI.MRI_ITS ---
Exam(s) MR BRAIN WO EXAM: MR BRAIN WO CLINICAL HISTORY: CVA vs TIA TECHNIQUE: Multiplanar multisequence MRI of the brain was performed. COMPARISON: No exams were available for comparison FINDINGS: VENTRICLES AND EXTRA AXIAL SPACES: Normal in size and morphology for the patient's age. MIDLINE SHIFT: None. CEREBRAL PARENCHYMA: Mild atrophy. Small focus restricted diffusion seen in the right basal ganglia and extending cephalad along the right lateral ventricle. No additional infarcts seen. No space-occ upying lesion identified. HEMORRHAGE: None. BRAINSTEM/CEREBELLUM: Normal. VISUALIZED PARANASAL SINUSES/MASTOIDS:Opacification of multiple sinuses. Significant loose mucous re tention and mucosal thickening throughout. Vasculature: Normal flow void. PITUITARY GLAND: Unremarkable. ORBITS: Posterior left sebaceous cyst left upper neck. IMPRESSION: Focal small acute infarct right basal ganglia and ferrari radiata. Severe chronic pansinusitis. DATA REPOSITORY:
--- NOTE | 2022-05-17 08:35 | DI.US_ITS ---
APPROVED REPORT EXAM: Comprehensive 2D, Doppler, and color-flow Echocardiogram Patient Location: In-Patient Room/Bed: [address] [employer] Analyst: Grace Kelly RDCS (AE) Indications: Stroke Other Information Study Quality: Fair. Technically limited study due to body habitus. Conclusion Normal left ventricular wall thickness and chamber size. Ejection fraction 55 to 60%. Wall motion i s normal Right ventricle is grossly normal in size and systolic function Both atria are normal in size Aortic valve is sclerotic and trileaflet without stenosis or regurgitation There is no additional structural or hemodynamically significant valvular disease Mildly dilated ascending aorta measuring 3.55 cm Wall motion Left Ventricle The left ventricle is normal size. The left ventricular systolic function is normal. The left ventric ular ejection fraction is within the normal range. There is normal left ventricular wall thickness. T here is normal LV segmental wall motion. LVEF is 55-60%. Right Ventricle Right ventricle is grossly normal in size. Right ventricular systolic function is grossly normal. Atria The left atrium size is normal. The right atrium size is normal. Aortic Valve The Aortic valve is sclerotic. Aortic valve is trileaflet. There is no aortic valvular stenosis. No a ortic regurgitation is present. Mitral Valve The mitral valve is normal in structure. No evidence of mitral valve stenosis. Trace mitral regurgit ation. Tricuspid Valve The tricuspid valve is normal in structure. There is no tricuspid valve stenosis. Trace tricuspid reg urgitation. Pulmonic Valve The pulmonary valve is normal in structure. There is no pulmonic valvular stenosis. Trace pulmonic re gurgitation. Great Vessels The aortic root is normal in size. The ascending aorta is mildly dilated. Aortic arch is normal in ca liber. The IVC was not visualized. Pericardium Technically limited subcostal imaging 2D Dimensions IVSD d PLAX 1.03 cm M: 0.6-1.2 LV Vol A2C d MOD 91.5 mL LVPW d PLAX 1.03 cm M: 0.6 - 1.2 LV Vol A4C d MOD 75.4 mL LVID d PLAX 3.97 cm M: 4.2 - 5.8 LA vol/ BSA A4C s A-L 22.6 mL/m2 LVDs 2.80 cm M: 2.5 - 4.0 LA Area A4C s MOD 16.08 cm2 Ao Root d 3.02 cm M: 3.1 - 3.7 LV EF A4C MOD 56.4 % Ao Asc Diam d 3.55 cm M: 2.6 - 3.4 LV EF A2C MOD 55.1 % LV EF Teichholz 55.3 % LV EF Biplane MOD 57.4 % LVEF (Chaparro's) 57.45 % M: 52 - 72 SV 50.13 mL LV Volume 66.69 mL M: 62 - 150 SV Index 26.50 mL/m2 LV Volume Index 35.28 mL/m2 M: 34 - 74 LV Vol Biplane MOD 87.3 mL FS 28.30 % M-Mode TAPSE 2.58 cm (M/F) >1.7 LV Diastology MV E' medial 0.078 (>0.07 m/s) E/A Ratio 0.5 LV E/e MED 6.25 (<14) MV E Vmax 0.49 (0.4-1.3 m/s) MV E' lateral 0.120 (>0.1 m/s) MV A Vmax 0.90 (0.4-1.3 m/s) LV E/e LAT 4.05 (<14) MV E/A Ratio 0.53 MV E/E' medial 6.25 MV E/E' lateral 4.08 Aortic Valve LVOT Area 3.02 cm2 AoV Area Vmax 2.16 cm2 LVOT Vmax 1.07 m/s AoV Area/ BSA (Vmax) 1.14 cm2/m2 LVOT Mean Arvin. 0.69 m/s MARQUIS Mean Arvin. 2.02 cm2 LVOT Peak Grad 4.6 mmHg MARQUIS Mean Arvin. Index 1.07 cm2/m2 LVOT Mean Grad 2.2 mmHg LVOT VTI 0.167 m LVOT Diam s 1.95 cm AoV Vmax 1.49 m/s Velocity Ratio 0.72 AoV Mean Arvin. 1.03 m/s AoV Peak Grad 8.9 mmHg LVOT SV 50.49 mL AoV Mean Grad 4.8 mmHg AoV VTI 0.224 m AoV Area VTI 2.26 cm2 AoV Area/ BSA (VTI) 1.19 cm/m2 Mitral Valve MV DT 384 (160-240 msec) MV PHT 111 msec MV Area PHT 1.97 cm2 MV VTI 0.238 m MV Area VTI 2.12 (4.0-6.0 cm2) Pulmonary Valve PV Vmax 1.47 (0.5-1.5 m/s) RVOT Peak Gr. 3.26 mmHg PV Peak Grad 8.6 mmHg RVOT Mean Gr. 1.60 mmHg PV Mean Grad 4.1 mmHg RVOT VTI 0.146 m PV VTI 0.218 m RVOT Vmax 0.90 m/s
[2022-05-17] MEDS: Clopidogrel 75 MG TAB PO (10:42)
[2022-05-17 11:12] LABS: PTT Activated 27.8 sec (21.5-31.9)
--- NOTE | 2022-05-17 14:08 | PDOC.CMIN ---
- If Service Date Differs Date of service: 05/17/22 Time of Service: 14:08 Care Management Initial Assess REASON FOR HOSPITALIZATION:: CVA PAST MEDICAL HISTORY/PAST SURGICAL HISTORY:: All Active Problems (Updated 05/16/22 @ 17:38 by Rishi Elliott MD). Discharge planning issues (Acute). Loss of balance (Acute). Suspected cerebrovascular accident (Acute). Sebaceous cyst (Acute). Peripheral neuropathy (Acute). Corns and callosities (Acute). Pain, foot (Acute). Nail dystrophy (Acute). Impacted cerumen, bilateral (Acute). Depressive disorder, not elsewhere classified (Chronic 02/21/96). paxil just PRN negative thoughts ~6-7/month. Sensorineural hearing loss, bilateral (Acute 07/25/14). Mood disturbance (Acute 11/23/16). intermittent Paroxetine rx since <1996, [facility] Cutforth initially; uses Paroxetine 2-3 days for bad mood, ankur winter; also rx with exercise, walking 8-10 miles/day. Other and unspecified hyperlipidemia (Acute 07/22/02). goal <70, known CAD; stopped lipitor 2012. Hearing loss (Acute 08/21/00). hearing aids. Conductive hearing loss, external ear (Acute 07/25/14). Coronary atherosclerosis of [place] coronary vessel (Acute 07/22/02). STENT X2 07/24; X4 06/24; NEAR SYNCOPE 08/30 DECR ATENOLOL TO 25 MG/D; and he stopped it altogether. Medical History . Pneumonia. Hospitalized with PNA, when? Syncope and collapse (~2011). Cardiac evaluation .. Surgical History . H/O angioplasty. H/O vasectomy PREVIOUS FUNCTIONAL STATUS/SOCIAL/FAMILY SUPPORTS:: Sal is retired and lives in [facility] with his Basia Fairbanks. Their son, Lawrence and daughter Naty both live locally and are supportive. Tiki has been staying with [facility] since Sal has been admitted. CURRENT FUNCTIONAL STATUS:: Sal is lying in bed visiting with his Tiki and daughter Naty. He went down for an MRI, family provided information for this interview. ADVANCE DIRECTIVES:: On file, [facility] is [facility] Has patient been provided with info about the portal/API?: Yes Did the patient sign up for the portal?: No CODE STATUS:: Full Code INSURANCE COVERAGE / FINANCIAL ISSUES:: Medicare CURRENT HOME/COMMUNITY SERVICES/EQUIPMENT:: Right Hearing Aid PRIMARY CARE PHYSICIAN:: Earnest Olivarez POTENTIAL DISCHARGE NEEDS:: Transfer to a tertiary hospital PATIENT/FAMILY EDUCATION NEEDS:: Review discharge instructions, limitations and plan to follow up with community providers. Discuss ask me three. TRANSPORTATION:: Dependent on disposition PLAN:: Per MD Sal needs to transfer to a tertiary facility and is accepted to [facility], pending bed availability.
--- NOTE | 2022-05-17 15:28 | W.NEUROCONSU ---
Date of service: 05/17/22 Time of Service: 15:28 Assessment and Plan Assessment and plan (1) Acute stroke due to stenosis of right carotid artery: Status: Acute (2) Carotid stenosis, right: Status: Acute Assessment and plan: Mr. Kolb had an acute ischemic stroke in the right hemisphere manifested by left hemiparesis and dysarthria (?L hemineglect) secondary to severe R carotid stenosis. [facility] Vascular surgery has accepted him once a bed is available. Work-up: -Telemetry -A1c Medications: -aspirin 81mg daily for secondary stroke prevention -heparin drip with goal PTT 52-85 -atorvastatin 80mg daily for secondary stroke prevention Other: -Allow permissive hypertension -Physical therapy for leg weakness, gait training -Occupation therapy for upper extremity weakness, activities of daily living -Speech therapy for speech and swallow -[facility] Vascular surgery as per them for symptomatic critical R carotid stenosis He should follow-up in neurology in 4-6 weeks. Please call with any further questions or concerns. History of Present Illness History of Present Illness Chief Complaint: stroke Narrative: Handedness: right. HPI: Mr. Kolb is a 77 year-old with congenital blindness of the R eye, heart disease s/p stent x2, depression, chronic kidney disease, and peripheral neuropathy. Mr. Kolb presented to the ER on 05/15/22 with imbalance, secondary to ?L leg weakness. However, his history was not clear as he was also describing dizziness and several weeks of imbalance. He was recommended stroke admission and work-up but declined and went home. He was started on aspirin 81mg daily. He presented back to the ER yesterday 05/16/22 with worsening balance and more obvious L leg weakness. On exam, he was also noted to have L face weakness and dysarthria, subtle LUE weakness too. He was loaded with clopidogrel 300mg last night in addition to atorvastatin 80mg and continued aspirin 81mg daily. This am, he noted slightly worse L hemiparesis - started on heparin drip in addition to aspirin + statin. Work-up: -CTH (05/15/22): Old right basal ganglia infarct. I reviewed these images personally and this is my personal interpretation. -CTA head/neck (05/15/22): severe R ICA stenosis. I reviewed these images personally and this is my personal interpretation. -CTH (05/16/22): New R periventricular hyperdensity consistent with acute/subacute infarct. Old R BG infacrt. I reviewed these images personally and this is my personal interpretation. -MRI brain w/o (05/17/22): Acute right basal ganglia/periventricular infarct. Mild chronic vascular changes. I reviewed these images personally and this is my personal interpretation. -TTE (05/17/22): EF 55-60%, no wall motion abnormalities. LA normal. -Labs (05/16/22): Cr 1.2 -> 1.4, trop x 2 neg; LDL 120 -Labs (04/13/22): B12 343, TSH 1.86 Review of Systems All systems reviewed & are unremarkable except as noted in HPI and below PFSH All Active Problems (Updated 05/17/22 @ 16:19 by Jacqueline Lawrence MD) Carotid stenosis, right (Acute) Acute stroke due to stenosis of right carotid artery (Acute) Discharge planning issues (Acute) Loss of balance (Acute) Suspected cerebrovascular accident (Acute) Sebaceous cyst (Acute) Peripheral neuropathy (Acute) Corns and callosities (Acute) Pain, foot (Acute) Nail dystrophy (Acute) Impacted cerumen, bilateral (Acute) Depressive disorder, not elsewhere classified (Chronic 02/21/96) paxil just PRN negative thoughts ~6-7/month Sensorineural hearing loss, bilateral (Acute 07/25/14) Mood disturbance (Acute 11/23/16) intermittent Paroxetine rx since <1996, [facility] Cut[facility] initially; uses Paroxetine 2-3 days for bad mood, ankur winter; also rx with exercise, walking 8-10 miles/day Other and unspecified hyperlipidemia (Acute 07/22/02) goal <70, known CAD; stopped lipitor 2013 Hearing loss (Acute 08/21/00) hearing aids Conductive hearing loss, external ear (Acute 07/25/14) Coronary atherosclerosis of [place] coronary vessel (Acute 07/22/02) STENT X2 07/24; X4 06/24; NEAR SYNCOPE 08/30 DECR ATENOLOL TO 25 MG/D; and he stopped it altogether Medical History Pneumonia Hospitalized with PNA, when? Syncope and collapse (~2011) Cardiac evaluation .. Surgical History H/O angioplasty H/O vasectomy Family History Mother , heart issues at age 85. Heart disease Sister Primary lung cancer smoker Brother Bladder cancer Brother Cancer head tumor Social History Smoking/Tobacco Use Status: Never Smoking risk assessment performed?: Yes Alcohol Intake: current Alcohol Intake frequency: 0-2 drinks per day Alcohol type: wine Drug use: Never Substance use type: does not use Adopted: No Caregiver/Support person: No Foster care: No Household members: spouse Housing: house Number of Children: 5 number of grandchildren: 4 Communication Needs: Hard of Hearing and Corrective Lenses Education Level: master's degree Do you need help understanding health information?: Rarely current occupation: retired Pets and animals: No Sexually active: Yes Do you think of yourself as: straight/heterosexual Current gender identity: male What is your relationship status?: How often do you talk on the phone with friends or family?: twice per week How often do you get together with friends or relatives?: once per week Do you belong to any clubs or organized social groups?: no Panel score (0-1 are the most socially isolated patients): 2 What type of physical activity do you participate in: walking Duration: > 90 minutes/day Frequency: daily Nora/Evangelical: Episcopalian Special nora needs: No Seatbelt use: always Helmet use: Yes Drive intox or ride w/intox waste collection driver: No Do you feel safe at home: Yes Do you feel safe in your relationship?: Yes Additional Social history: at bedside. Visit Medication and Allergies Active Medications Generic Name Dose Route Start Last Admin Trade Name Freq PRN Reason Stop Dose Admin Acetaminophen 0 mg 05/16/22 15:01 Acetaminophen 325 Mg Tab PO Q4H PRN PRN Al Hydrox/Mg Hydrox/Simethicone 30 ml 05/16/22 15:01 Mylanta Suspension 30 Ml Cup PO Q2H PRN PRN Aspirin 81 mg 05/17/22 08:30 05/17/22 07:49 Aspirin 81 Mg Chew PO 81 mg DAILY EILEEN Administration Atorvastatin Calcium 80 mg 05/16/22 20:00 05/16/22 20:09 Atorvastatin 40 Mg Tab PO 80 mg QPM EILEEN Administration Clopidogrel Bisulfate 75 mg 05/17/22 08:30 05/17/22 10:42 Clopidogrel 75 Mg Tab PO 75 mg DAILY EILEEN Administration Dimethicone/Zinc Oxide 0 gm 05/16/22 15:01 Mayte Protect Cream 142 Gm Tube TP PRN PRN Heparin Sodium (Porcine) 25,000 units in 250 mls @ 9.5 mls/hr 05/17/22 10:30 05/17/22 15:25 IV 950 units/hr INFUSION EILEEN 9.5 mls/hr Administration Protocol 950 UNITS/HR IV Miscellaneous Supplies 1 each 05/16/22 12:45 Iv Access IV DIRECTED EILEEN Polyethylene Glycol 17 gm 05/16/22 15:01 Polyethylene Glycol 3350 17 Gm Packet PO DAILY PRN PRN Constipation Sodium Chloride 0 ml 05/16/22 12:45 Normal Saline Flush 10 Ml Syr IVP PRN PRN Allergies atenolol Adverse Reaction (Intermediate, Verified 05/16/22 12:25) near syncope tree pollen Allergy (Uncoded 05/16/22 12:25) Exam Narrative Exam Narrative: Physical Exam: Gen: Patient of apparent stated age, NAD Head and face: no facial or cranial abnormalities Neck: Supple, no meningismus, no occipital tenderness CV: + S1, S2, RRR, no murmur Resp: CTA B/L Abd: soft, nontender, nondistended Ext: No edema. No clubbing or cyanosis. No bony deformity. Neuro Exam: Language: fluency, naming, repetition, and comprehension intact; Mental Status: AAOx3, current events intact, fund of knowledge intact; Speech: no dysarthria Cranial nerves: Funduscopy: not performed CN II: visual winter intact in L eye; congenitally blind in R eye CN III, IV, : extraocular movements intact in L eye, R eye esotropia; no nystagmus, pupils symmetric and reactive to light CN V: face sensation intact to LT and PP CN VII: no facial asymmetry noted CN VIII: hearing intact bilaterally CN IX, X: palate rises symmetrically CN XI: trapezius/SCM 5/5 bilaterally CN XII: protrudes tongue symmetrically Sensory: intact to LT, PP in all extremities Motor: bulk and tone intact. Fine motor movements reduced on the left Mild L pronator drift. Strength 5/5 throughout RUE and RLE including the deltoids, biceps, triceps, wrist extensors, hip flexors, knee flexors, knee extensors, ankle flexors, and ankle extensors. 4-4+/5 in LUE and LLE. Element of neglecT? Reflexes: hyporeflexic throughout; toes down going bilaterally; Coordination: FTN and HTS intact bilaterally Gait: not tested; states he cannot walk at this time Results Last Vital Signs Temp 98.1 F 05/17/22 11:31 Pulse 78 05/17/22 11:31 Resp 16 05/17/22 11:31 BP 151/88 H 05/17/22 11:31 Pulse Ox 96 05/17/22 11:31 Labs 05/16/22 20:17 05/16/22 20:17 Labs: Laboratory Results - last 24 hr 05/16/22 05/16/22 05/16/22 16:08 20:17 20:17 WBC 6.79 RBC 4.77 Hgb 13.8 Hct 39.8 L MCV 83 MCH 28.9 MCHC 34.7 RDW 12.5 Plt Count 200 MPV 9.5 Immature Gran % 0.3 Neutrophils % 60.0 Lymphocytes % 26.4 Monocytes % 9.4 Eosinophils % 3.5 Basophils % 0.4 Nucleated RBC % 0.0 Absolute Neutrophils 4.07 Absolute Lymphocytes 1.79 Absolute Monocytes 0.64 Absolute Eosinophils 0.24 Absolute Basophils 0.03 APTT Sodium 141 Potassium 4.0 Chloride 107 Carbon Dioxide 29.3 Anion Gap 4.7 BUN 18 Creatinine 1.4 H Est GFR (CKD-EPI 2020) 51.45 Glucose 106 Calcium 8.4 L Magnesium 2.1 Troponin I < 50 Triglycerides Total Cholesterol LDL Cholesterol, Calc HDL Cholesterol COVID-19 Source Nasal/Nares SARS-CoV-2 (PCR) Negative 05/17/22 05/17/22 07:10 10:52 WBC RBC Hgb Hct MCV MCH MCHC RDW Plt Count MPV Immature Gran % Neutrophils % Lymphocytes % Monocytes % Eosinophils % Basophils % Nucleated RBC % Absolute Neutrophils Absolute Lymphocytes Absolute Monocytes Absolute Eosinophils Absolute Basophils APTT 27.8 Sodium Potassium Chloride Carbon Dioxide Anion Gap BUN Creatinine Est GFR (CKD-EPI 2020) Glucose Calcium Magnesium Troponin I Triglycerides 123 Total Cholesterol 200 LDL Cholesterol, Calc 120 H HDL Cholesterol 56 COVID-19 Source SARS-CoV-2 (PCR)
--- NOTE | 2022-05-17 17:59 | W.PM.PROGNOT ---
Date of Service Date of service: 05/17/22 Time of Service: 17:59 Assessment and Plan Assessment and plan (1) Suspected cerebrovascular accident: Status: Acute Assessment and plan: Pt with dysarthria and left side facial muscle weakness. Also with impaired balance; noted over the last several weeks. Feels like he is drunk. Symptoms began the morning of 05/15/22. He presented to the ED then but decided to not be admitted for further w/u and an MRI on Tuesday after his CTA. CT brain w/o acute findings. CTA: No acute intracranial hemorrhage, mass effect or midline shift. 2. 2.9 cm subcutaneous cystic lesion in the left occipital region, possibly a large sebaceous cyst. Correlate with physical examination findings and compare with prior imaging. 3. Paranasal sinus disease noted. IMPRESSION: No large vessel stenosis or occlusion. IMPRESSION: 1. Apparent complete occlusion of the origin of the right ICA, although there may be trace flow present which is not visible. This is secondary to significant atherosclerotic plaque. 2. No dissection. CVA w/u to include MRI brain, neurology consult, cont. ASA 81 mg initiated in ED on 05/15, PT/OT/speech, lipid panel, telemetry, echocardiogram. Plavix daily; loading dose the evening of 05/16. Heparin drip. High dose atorvastatin 80mg daily. PT/OT/Speech. Vascular surgery at [facility] has accepted him for transfer. Waiting for bed opening. (2) Coronary atherosclerosis of [place] coronary vessel: Status: Acute Assessment and plan: He was not previously on an aspirin. Not on a BB. No c/o anginal sxs. (3) Discharge planning issues: Status: Acute Assessment and plan: Admitted as observation. Disposition pending further w/u. Subjective Subjective Patient reports: tolerating a regular diet and afebrile; denies nausea, vomiting or shortness of breath Interval history since last seen: Pt endorses increased weakness of LUE. Continues to feel unstable when standing. Exam Narrative Exam Narrative: Pleasant and cooperative. Lying in bed. and daughter present. Const General: no acute distress and well groomed Orientation: alert, awake and oriented x3 HENMT Head: normal to inspection Ears: hearing grossly abnormal bilaterally (decreased hearing acuity / chronic. ) Mouth: oral mucosae normal and moist mucous membranes Eyes Alignment and Position: alignment abnormal right (Blind ) esotropia Periorbital: periorbital findings normal Eyelids: eyelids normal Sclera: sclerae normal Neck Neck: normal visual inspection, full ROM and no meningeal signs Resp Effort & Inspection: normal respiratory effort and able to speak in complete sentences Auscultation: clear to auscultation bilaterally Cardio Rate: regular rate Rhythm: regular rhythm Heart Sounds: S1 normal and S2 normal GI Inspection: non-distended Palpation: soft and nontender Skin General skin exam: no rashes or lesions noted Neuro General: patient alert, patient awake, patient oriented x3, tone normal, moves all extremities, focal motor deficits present (Mild left UE pronator drift. ) and not confused Cranial Nerves: facial strength abnormal (left perioral muscle weakness. ) and tongue midline Cognition: normal cognition Speech: speech normal Sensory Exam: no sensory deficits noted Extrem General: no pedal edema and no calf tenderness Psych Appearance: grossly normal Affect: normal affect Objective Last Vital Signs Temp 37.3 C 05/17/22 15:40 Pulse 83 05/17/22 15:40 Resp 14 05/17/22 15:40 BP 137/76 05/17/22 15:40 Pulse Ox 96 05/17/22 15:40 Laboratory Results - last 24 hr 05/16/22 05/16/22 05/17/22 20:17 20:17 07:10 WBC 6.79 RBC 4.77 Hgb 13.8 Hct 39.8 L MCV 83 MCH 28.9 MCHC 34.7 RDW 12.5 Plt Count 200 MPV 9.5 Immature Gran % 0.3 Neutrophils % 60.0 Lymphocytes % 26.4 Monocytes % 9.4 Eosinophils % 3.5 Basophils % 0.4 Nucleated RBC % 0.0 Absolute Neutrophils 4.07 Absolute Lymphocytes 1.79 Absolute Monocytes 0.64 Absolute Eosinophils 0.24 Absolute Basophils 0.03 APTT Sodium 141 Potassium 4.0 Chloride 107 Carbon Dioxide 29.3 Anion Gap 4.7 BUN 18 Creatinine 1.4 H Est GFR (CKD-EPI 2020) 51.45 Glucose 106 Calcium 8.4 L Magnesium 2.1 Troponin I < 50 Triglycerides 123 Total Cholesterol 200 LDL Cholesterol, Calc 120 H HDL Cholesterol 56 05/17/22 10:52 WBC RBC Hgb Hct MCV MCH MCHC RDW Plt Count MPV Immature Gran % Neutrophils % Lymphocytes % Monocytes % Eosinophils % Basophils % Nucleated RBC % Absolute Neutrophils Absolute Lymphocytes Absolute Monocytes Absolute Eosinophils Absolute Basophils APTT 27.8 Sodium Potassium Chloride Carbon Dioxide Anion Gap BUN Creatinine Est GFR (CKD-EPI 2020) Glucose Calcium Magnesium Troponin I Triglycerides Total Cholesterol LDL Cholesterol, Calc HDL Cholesterol Time Spent with Patient Time Spent with Patient: 35-49 minutes Time was spent: preparing to see the patient(eg.review tests), ordering medications,tests, procedures, referring, communicating with other health critical care specialist, indepentently interpreting results and counseling the patient
--- NOTE | 2022-05-17 20:09 | DSE_ITS ---
Date of service: 05/17/22 Time of Service: 20:09 DS: Diagnosis Discharge Diagnosis (1) Suspected cerebrovascular accident: Status: Acute (2) Coronary atherosclerosis of [place] coronary vessel: Status: Acute (3) Discharge planning issues: Status: Acute Discharge Plan Disposition Patient Disposition: Transfer-Acute Inpatient Care Specific Acute Inpt Facility: [facility] Condition: Fair Discharge Details Reason For Visit: CVA Admit Date/Time: 05/16/22 15:01 Admit Provider: Rishi Elliott Attending Provider: Rishi Elliott Primary Care Provider: Earnest Olivarez [facility] Hospital Course: This is a 77 yo male with a PMH of CAD with stent x2 (07/24), depression, peripheral neuropathy.? He initially presented to the [facility] ED on 05/16/22 with c/o difficulty walking (feeling drunk).? This was noted at 9 AM that morning.? W/U included a CTA head that showed?no acute intracranial hemorrhage, mass effect or midline shift, a 2.9 cm subcutaneous cystic lesion in the left occipital region, possibly a large sebaceous cyst and paranasal sinus disease noted. No large vessel stenosis or occlusion. Apparent complete occlusion of the origin of the right ICA, although there may be trace flow present which is not visible. This is secondary to significant atherosclerotic plaque. No dissection.? He did not want to remain in the hospital waiting for an MRI and decided to go home and have further w/u as outpt.? Dr Bradshaw neurology at [facility] was contacted by ED physician. She advised that the most conservative approach would be to hospitalize the patient.? Advised her that the patient did not want hospitalization.? As result, the patient was to be seen in the TIA clinic at [facility].?The ED initiated aspirin therapy for the next 5 days at 81 mg daily.? Ordered an MRI brain for the patient and had the patient seen by his primary care provider for a Holter monitor and an echocardiogram.? He returned to the [facility] ED the following day with worsening unsteady gait, feeling weak and at that time endorsed intermittent slurred speech. Repeat CT brain showed no acute findings. He did not c/o any focal muscle weakness.? He was admitted for further w/u and treatment. He was evaluated by neurology: Mr. Kolb had an acute ischemic stroke in the right hemisphere manifested by left hemiparesis and dysarthria (?L hemineglect) secondary to severe R carotid stenosis. [facility] Vascular surgery has accepted him once a bed is available. Work-up: -Telemetry -A1c Medications: -aspirin 81mg daily for secondary stroke prevention -heparin drip? with goal PTT 52-85 -atorvastatin 80mg daily for secondary stroke prevention Other: -Allow permissive hypertension -Physical therapy for leg weakness, gait training -Occupation therapy for upper extremity weakness, activities of daily living -Speech therapy for speech and swallow -[facility] Vascular surgery as per them for symptomatic critical R carotid stenosis He is being transferred to [facility] via EMS, stable with a heparin drip. Home Meds and New Rx's Prescriptions: No Action aspirin 81 mg capsule 81 mg PO DAILY Qty: 30 0RF meclizine 25 mg tablet 25 mg PO DAILY PRNQty: 30 0RF Discharge Instructions Activity:: Bed rest Equipment/Supplies:: No Equipment Needed Diet:: Low Sodium Discharge Orders Discharge Orders: Discharge Order (Routine); Ordered 05/17/22 Ordered By: Olga Davis DS: Summary Time Spent with Patient providing and/or coordinating discharge services: Less than 30 minutes Status at Discharge Functional status at discharge: bed bound Overall status at discharge: patient is not back to baseline Mental Status: mental status grossly normal Speech and Movement: speech and movement normal Mood: congruent mood Affect: normal affect Exam Narrative Exam Narrative: Pleasant and cooperative. Lying in bed. and daughter present. Const General: no acute distress and well groomed Orientation: alert, awake and oriented x3 HENMT Head: normal to inspection Ears: hearing grossly abnormal bilaterally (decreased hearing acuity / chronic. ) Mouth: oral mucosae normal and moist mucous membranes Eyes Alignment and Position: alignment abnormal right (Blind ) esotropia Periorbital: periorbital findings normal Eyelids: eyelids normal Sclera: sclerae normal Neck Neck: normal visual inspection, full ROM and no meningeal signs Resp Effort & Inspection: normal respiratory effort and able to speak in complete sentences Auscultation: clear to auscultation bilaterally Cardio Rate: regular rate Rhythm: regular rhythm Heart Sounds: S1 normal and S2 normal GI Inspection: non-distended Palpation: soft and nontender Skin General skin exam: no rashes or lesions noted Neuro General: patient alert, patient awake, patient oriented x3, tone normal, moves all extremities, focal motor deficits present (Mild left UE pronator drift. ) and not confused Cranial Nerves: facial strength abnormal (left perioral muscle weakness. ) and tongue midline Cognition: normal cognition Speech: speech normal Sensory Exam: no sensory deficits noted Extrem General: no pedal edema and no calf tenderness Psych Appearance: grossly normal Mental Status: mental status grossly normal Speech and Movement: speech and movement normal Mood: congruent mood Affect: normal affect DS: Data Vitals/I&O Vitals and I&O: Vital Signs Temperature 36.4 C L 05/17/22 19:27 Temperature Source Tympanic 05/17/22 19:27 Pulse 79 05/17/22 19:27 Pulse Rhythm Regular 05/17/22 16:08 Respiratory Rate 16 05/17/22 19:27 Respiratory Effort Normal, Non-Labored 05/17/22 16:08 Respiratory Depth Normal 05/17/22 16:08 Respiratory Pattern Normal 05/17/22 16:08 Blood Pressure 159/67 H 05/17/22 19:27 Blood Pressure Position Supine 05/16/22 12:22 Pulse Oximetry 95 05/17/22 19:27 Oxygen Delivery Method Room Air 05/17/22 19:27 Oxygen Flow Rate 0 05/17/22 19:27 Pain Level 0 05/17/22 19:27 Comment Informed RN 05/16/22 19:56 Intake & Output 05/16/22 05/17/22 05/17/22 23:59 11:59 23:59 Intake Total 240 / 240 Output Total 800 / 800 1350 / 1550 200 / 1550 Balance -560 / -560 -1350 / -1550 -200 / -1550 Weight 77.564 kg Intake: Oral 240 / 240 Output: Urine 800 / 800 1350 / 1550 200 / 1550 Other: Urine Color Yellow Yellow Light Gisela Urine Appearance Clear Clear Clear Urine Odor Normal Normal Strong Voiding Methods Bedside Commode Urinal Urinal Urinal Data Completed and Pending Labs on day of discharge: Labs from last 24 hours 05/17/22 05/17/22 05/17/22 21:30 10:52 07:10 WBC RBC Hgb Hct MCV MCH MCHC RDW Plt Count MPV Immature Gran % Neutrophils % Lymphocytes % Monocytes % Eosinophils % Basophils % Nucleated RBC % Absolute Neutrophils Absolute Lymphocytes Absolute Monocytes Absolute Eosinophils Absolute Basophils APTT Pending 27.8 Sodium Potassium Chloride Carbon Dioxide Anion Gap BUN Creatinine Est GFR (CKD-EPI 2020) Glucose Calcium Magnesium Troponin I Triglycerides 123 Total Cholesterol 200 LDL Cholesterol, Calc 120 H HDL Cholesterol 56 05/16/22 05/16/22 20:17 20:17 WBC 6.79 RBC 4.77 Hgb 13.8 Hct 39.8 L MCV 83 MCH 28.9 MCHC 34.7 RDW 12.5 Plt Count 200 MPV 9.5 Immature Gran % 0.3 Neutrophils % 60.0 Lymphocytes % 26.4 Monocytes % 9.4 Eosinophils % 3.5 Basophils % 0.4 Nucleated RBC % 0.0 Absolute Neutrophils 4.07 Absolute Lymphocytes 1.79 Absolute Monocytes 0.64 Absolute Eosinophils 0.24 Absolute Basophils 0.03 APTT Sodium 141 Potassium 4.0 Chloride 107 Carbon Dioxide 29.3 Anion Gap 4.7 BUN 18 Creatinine 1.4 H Est GFR (CKD-EPI 2020) 51.45 Glucose 106 Calcium 8.4 L Magnesium 2.1 Troponin I < 50 Triglycerides Total Cholesterol LDL Cholesterol, Calc HDL Cholesterol PFSH All Active Problems (Updated 05/17/22 @ 16:19 by Jacqueline Lawrence MD) Carotid stenosis, right (Acute) Acute stroke due to stenosis of right carotid artery (Acute) Discharge planning issues (Acute) Loss of balance (Acute) Suspected cerebrovascular accident (Acute) Sebaceous cyst (Acute) Peripheral neuropathy (Acute) Corns and callosities (Acute) Pain, foot (Acute) Nail dystrophy (Acute) Impacted cerumen, bilateral (Acute) Depressive disorder, not elsewhere classified (Chronic 02/21/96) paxil just PRN negative thoughts ~6-7/month Sensorineural hearing loss, bilateral (Acute 07/25/14) Mood disturbance (Acute 11/23/16) intermittent Paroxetine rx since <1996, Mona Cutforth initially; uses Paroxetine 2-3 days for bad mood, ankur winter; also rx with exercise, walking 8-10 miles/day Other and unspecified hyperlipidemia (Acute 07/22/02) goal <70, known CAD; stopped lipitor 2013 Hearing loss (Acute 08/21/00) hearing aids Conductive hearing loss, external ear (Acute 07/25/14) Coronary atherosclerosis of [place] coronary vessel (Acute 07/22/02) STENT X2 07/24; X4 06/24; NEAR SYNCOPE 08/30 DECR ATENOLOL TO 25 MG/D; and he stopped it altogether Medical History Pneumonia Hospitalized with PNA, when? Syncope and collapse (~2011) Cardiac evaluation .. Surgical History H/O angioplasty H/O vasectomy Family History Mother , heart issues at age 85. Heart disease Sister Primary lung cancer smoker Brother Bladder cancer Brother Cancer head tumor Social History Smoking/Tobacco Use Status: Never Smoking risk assessment performed?: Yes Alcohol Intake: current Alcohol Intake frequency: 0-2 drinks per day Alcohol type: wine Drug use: Never Substance use type: does not use Adopted: No Caregiver/Support person: No Foster care: No Household members: spouse Housing: house Number of Children: 5 number of grandchildren: 4 Communication Needs: Hard of Hearing and Corrective Lenses Education Level: master's degree Do you need help understanding health information?: Rarely current occupation: retired Pets and animals: No Sexually active: Yes Do you think of yourself as: straight/heterosexual Current gender identity: male What is your relationship status?: How often do you talk on the phone with friends or family?: twice per week How often do you get together with friends or relatives?: once per week Do you belong to any clubs or organized social groups?: no Panel score (0-1 are the most socially isolated patients): 2 What type of physical activity do you participate in: walking Duration: > 90 minutes/day Frequency: daily Nora/Jain: Anabaptist Special nora needs: No Seatbelt use: always Helmet use: Yes Drive intox or ride w/intox backhaul driver: No Do you feel safe at home: Yes Do you feel safe in your relationship?: Yes Additional Social history: at bedside. Time Spent with Patient Time Spent with Patient: <45 minutes Time was spent: referring, communicating with other health care transition coordinator and care coordination
[2022-05-17 21:50] LABS: PTT Activated 62.2 sec (21.5-31.9)
--- NOTE | 2022-05-18 14:15 | PTTR_ITS ---
Date of service: 05/18/22 Time of Service: 14:15 PT Notes Visit Reasons: Cerebrovascular accident Patient transferred [place] [facility] [place] management of critical R carotid stenosis. No services were provided during this admission.
--- NOTE | 2022-05-18 14:15 | PT.INTREAT ---
Date of service: 05/18/22 Time of Service: 14:15 PT Notes Visit Reasons: Cerebrovascular accident Patient [place] [facility] [place] of critical R carotid stenosis. No services were provided during this admission.
== END 2022-05-17 23:39 | disposition short-term general hospital (02) ==
LOC: ER 15:53 → MS 16:16
PROVIDERS: Nurse Practitioner Family; Admitting Provider Family Medicine; Emergency Provider Nurse Practitioner Family; PCP Family Medicine; Visit Provider Family Medicine
DX: I63.231 Cerebral infarction due to unspecified occlusion or stenosis of right carotid arteries (principal); Z20.822 Contact with and (suspected) exposure to COVID-19; R53.1 Weakness; R47.81 Slurred speech; G62.9 Polyneuropathy, unspecified; F32.A Depression, unspecified; H90.3 Sensorineural hearing loss, bilateral; E78.5 Hyperlipidemia, unspecified; I25.10 Atherosclerotic heart disease of native coronary artery without angina pectoris; Z95.5 Presence of coronary angioplasty implant and graft; R29.810 Facial weakness; R26.89 Other abnormalities of gait and mobility; G81.94 Hemiplegia, unspecified affecting left nondominant side; J32.4 Chronic pansinusitis; R47.1 Dysarthria and anarthria
CPT/HCPCS: 36415; 80048; 80061; 85027; 87635; 93306; 96365; 96366; 99223; 99285; 70450; 70551; 83036; 83735; 84484; 85025; 85730; 99239

== ENCOUNTER → 2022-05-17 07:52 | Outpatient (BNVA) | payer MEDICARE, SELFPAY | PROVIDERS: PCP Family Medicine; Referring Provider Family Medicine; Visit Provider Psychiatry & Neurology Neurology ==

== ENCOUNTER 2022-09-16 03:59 | Outpatient (CLI) | payer MEDICARE, SELFPAY ==
[2022-09-16 09:48] LABS: Calculated LDL 85 mg/dL (<100); Cholesterol 162 mg/dL (<200); HDL Cholesterol 66 mg/dL (40-60); Triglyceride 58 mg/dL (<150)
== END 2022-09-16 04:00 | disposition home or self-care (01) ==
LOC: LBO 03:59
PROVIDERS: PCP Family Medicine; Visit Provider Family Medicine
DX: I63.231 Cerebral infarction due to unspecified occlusion or stenosis of right carotid arteries (principal)
CPT/HCPCS: 36415; 80061

== ENCOUNTER 2022-12-13 01:30 | Outpatient (CLI) | payer MEDICARE, SELFPAY ==
--- NOTE | 2022-12-13 08:00 | DI.RAD_ITS ---
Exam(s) XR FOOT LT COMPLETE EXAM: XR FOOT LT COMPLETE CLINICAL HISTORY: Pain in left foot,LT TOE PAIN, M70.675. TECHNIQUE: 2D digital imaging was performed. Three views. COMPARISON: CR XR FOOT RT COMPLETE from 12/13/2022 FINDINGS: BONES: No acute fracture is present. No bony destructive lesion is seen. Small plantar calcaneal sp ur. JOINTS: No dislocation present. Mild intertarsal degenerative changes. Mild degenerative changes 1 st MTP joint. SOFT TISSUE: Normal. IMPRESSION: Mild degenerative changes. DATA REPOSITORY: RADIATION DOSE DELIVERED:
--- NOTE | 2022-12-13 08:00 | DI.RAD_ITS ---
Exam(s) XR FOOT RT COMPLETE EXAM: XR FOOT RT COMPLETE CLINICAL HISTORY: Pain in right foot,HAMMER TOE,BUNION RT GREAT TOE,M79.671,M79.674,M20.41,. TECHNIQUE: 2D digital imaging was performed. Three views. COMPARISON: No exams were available for comparison FINDINGS: BONES: No acute fracture is present. No bony destructive lesion is seen. Tiny plantar calcaneal spur . JOINTS: No dislocation present. Severe 2nd toe hammertoe deformity with the 2nd toe overlapping the great toe. Hallux valgus. SOFT TISSUE: Vascular calcification. IMPRESSION: Severe hammertoe deformity 2nd toe. Hallux valgus. DATA REPOSITORY: RADIATION DOSE DELIVERED:
== END 2022-12-13 01:50 ==
PROVIDERS: PCP Family Medicine; Visit Provider Podiatrist
DX: M20.41 Other hammer toe(s) (acquired), right foot (principal); M79.671 Pain in right foot; M79.674 Pain in right toe(s); M79.675 Pain in left toe(s)
CPT/HCPCS: 73630

== ENCOUNTER → 2022-12-23 11:26 | Outpatient (BNVA) | payer MEDICARE, SELFPAY | PROVIDERS: PCP Family Medicine; Referring Provider Family Medicine; Visit Provider Podiatrist | DX: L97.511 Non-pressure chronic ulcer of other part of right foot limited to breakdown of skin (principal); M79.675 Pain in left toe(s); M79.674 Pain in right toe(s); M20.41 Other hammer toe(s) (acquired), right foot; M21.611 Bunion of right foot | CPT/HCPCS: 97597; 99213 ==

== ENCOUNTER → 2023-01-18 13:40 | Outpatient (BNVA) | payer MEDICARE, SELFPAY | PROVIDERS: PCP Family Medicine; Referring Provider Family Medicine; Visit Provider Podiatrist | DX: M79.675 Pain in left toe(s) (principal); M79.674 Pain in right toe(s); L97.511 Non-pressure chronic ulcer of other part of right foot limited to breakdown of skin; L84 Corns and callosities; M20.41 Other hammer toe(s) (acquired), right foot; M21.611 Bunion of right foot | CPT/HCPCS: 97597; 99213 ==

== ENCOUNTER 2023-02-07 09:55 | Outpatient (REF) | payer MEDICARE, SELFPAY ==
--- NOTE | 2023-02-07 10:30 | SKI_PTH ---
PATIENT: Sal Kolb LOC: [facility] U#:[id number] AGE/SX: 78/M ROOM: RE02/07/[address]: Araseli Santos MD : [id number] BED: DIS: 02/07/2023 SPEC #: [id number] RECD: 02/07/23 13:04 STATUS: NATASHA REAmos #: [id number] LENCHO: 02/07/23 10:[address]: Araseli Santos DEPT: Surgical Specimen RECD BY: Summer Tapia ENTERED: 02/07/23 13:04 SP TYPE: SANDI MORALES DR: Earnest Olivarez DO Tissues: 1 - SKIN BIOPSY(SHAVE/PUNCH) Procedures: SKIN LEVEL 4 Comments: [id number]
== END 2023-02-07 09:56 | disposition home or self-care (01) ==
LOC: LBN 09:55
PROVIDERS: PCP Family Medicine; Referring Provider Family Medicine; Visit Provider Surgery
DX: L82.1 Other seborrheic keratosis (principal)
CPT/HCPCS: 88305

== ENCOUNTER → 2023-02-07 09:55 | Outpatient (BNVA) | payer MEDICARE, SELFPAY | PROVIDERS: PCP Family Medicine; Referring Provider Family Medicine; Visit Provider Surgery | DX: C44.629 Squamous cell carcinoma of skin of left upper limb, including shoulder (principal); L98.9 Disorder of the skin and subcutaneous tissue, unspecified | CPT/HCPCS: 11402; 99214 ==

== ENCOUNTER → 2023-02-18 09:25 | Outpatient (BNVA) | payer MEDICARE, SELFPAY | PROVIDERS: PCP Family Medicine; Referring Provider Family Medicine; Visit Provider Physical Therapy Assistant | DX: Z48.02 Encounter for removal of sutures (principal) ==

== ENCOUNTER → 2023-03-07 09:24 | Outpatient (BNVA) | payer MEDICARE, SELFPAY | PROVIDERS: PCP Family Medicine; Referring Provider Family Medicine; Visit Provider Physical Therapy Assistant | DX: M79.89 Other specified soft tissue disorders (principal) | CPT/HCPCS: 93922 ==

== ENCOUNTER → 2023-04-05 15:00 | Outpatient (BNVA) | payer MEDICARE, SELFPAY | PROVIDERS: PCP Family Medicine; Referring Provider Family Medicine; Visit Provider Podiatrist | DX: M79.675 Pain in left toe(s); M79.674 Pain in right toe(s); M20.41 Other hammer toe(s) (acquired), right foot; M21.611 Bunion of right foot; L97.511 Non-pressure chronic ulcer of other part of right foot limited to breakdown of skin; I73.9 Peripheral vascular disease, unspecified | CPT/HCPCS: 97597 ==

== ENCOUNTER → 2023-05-03 14:36 | Outpatient (BNVA) | payer MEDICARE, SELFPAY | PROVIDERS: PCP Family Medicine; Referring Provider Family Medicine; Visit Provider Podiatrist | DX: M20.41 Other hammer toe(s) (acquired), right foot (principal); M79.675 Pain in left toe(s); M79.674 Pain in right toe(s); M21.611 Bunion of right foot; L97.511 Non-pressure chronic ulcer of other part of right foot limited to breakdown of skin; I73.9 Peripheral vascular disease, unspecified | CPT/HCPCS: 28010 ==

== ENCOUNTER → 2023-05-09 15:24 | Outpatient (BNVA) | payer MEDICARE, SELFPAY | PROVIDERS: PCP Family Medicine; Referring Provider Family Medicine; Visit Provider Podiatrist | DX: M20.41 Other hammer toe(s) (acquired), right foot (principal); M79.675 Pain in left toe(s); M79.674 Pain in right toe(s); M21.611 Bunion of right foot; L97.511 Non-pressure chronic ulcer of other part of right foot limited to breakdown of skin; Z48.817 Encounter for surgical aftercare following surgery on the skin and subcutaneous tissue | CPT/HCPCS: 99024; 99214 ==

== ENCOUNTER 2023-05-23 11:39 | Outpatient (CLI) | payer MEDICARE, SELFPAY ==
--- NOTE | 2023-05-23 11:30 | RT.EKG_ITS ---
APPROVED REPORT Exam: Resting ECG Reason for Exam: Pre-op Patient Location: O HR:71 bpm ECG Measurements Heart Rate [address] 193 P 72 QRSd 131 QRS 21 QT 402 T 15 QTc 437 Conclusion Sinus rhythm...normal P axis, V-rate 50- 99 Right bundle branch block...QRSd>120, terminal axis(90,270)
== END 2023-05-23 11:40 | disposition home or self-care (01) ==
LOC: DI.KIM 11:40
PROVIDERS: PCP Family Medicine; Visit Provider Family Medicine
DX: Z01.818 Encounter for other preprocedural examination (principal)
CPT/HCPCS: 93010

== ENCOUNTER → 2023-06-01 09:44 | Outpatient (BNVA) | payer MEDICARE, SELFPAY | PROVIDERS: PCP Family Medicine; Referring Provider Family Medicine; Visit Provider Podiatrist | DX: M20.41 Other hammer toe(s) (acquired), right foot (principal); M79.675 Pain in left toe(s); M79.674 Pain in right toe(s); M21.611 Bunion of right foot; L97.511 Non-pressure chronic ulcer of other part of right foot limited to breakdown of skin; I73.9 Peripheral vascular disease, unspecified | CPT/HCPCS: 99024 ==

== ENCOUNTER 2023-06-03 01:38 | Outpatient (CLI) | payer MEDICARE, SELFPAY ==
[2023-06-03 10:54] LABS: Abs Immature Grans 0.02 10^3/uL (0.0-0.06); Absolute Basophil Count 0.02 10^3/uL (0.0-0.2); Absolute Lymphocyte Count 1.92 10^3/uL (1.2-3.4); Absolute Monocyte Count 0.42 10^3/uL (0.1-0.8); Absolute Neutrophil Count 4.08 10^3/uL (1.2-6.7); Basophils % 0.3; Eosinophils % 4.4; HCT 41.8 % (40.0-50.0); HGB 14.2 g/dL (13.5-17.5); Immature Grans % 0.3; Lymphocytes % 28.4; MCH 29.5 pg (27.0-33.0); MCV 87 fL (80-95); MPV 9.5 fL (8.0-11.0); Monocytes % 6.2; Neutrophils % 60.4; Platelet Count 218 10^3/uL (130-400); RBC 4.81 10^6/uL (4.36-5.78); RDW 12.6 % (11.8-14.1); RDW-SD 40.1 fL; WBC 6.76 10^3/uL (4.4-10.8)
[2023-06-03 11:26] LABS: ALT 44 U/L (16-63); AST 29 U/L (15-37); Albumin 3.4 g/dL (3.4-5.0); Alkaline Phosphatase 105 U/L (46-116); Anion Gap 6.5 mmol/L (3-11); BUN 30 mg/dL (7-18); Bilirubin, Total 0.9 mg/dL (0.2-1.0); CO2 28.5 mmol/L (21.0-32.0); CREATININE 1.2 mg/dL (0.70-1.30); Calcium 8.8 mg/dL (8.5-10.1); Chloride 105 mmol/L (98-107); Estimated GFR 61.52 (mL/min/1.73m2); Glucose 106 mg/dL (74-106); Potassium 4.3 mmol/L (3.5-5.1); Sodium 140 mmol/L (136-145); Total Protein 7.1 g/dL (6.4-8.2)
== END 2023-06-03 01:39 | disposition home or self-care (01) ==
LOC: LBO 01:38
PROVIDERS: PCP Family Medicine; Visit Provider Podiatrist
DX: Z01.818 Encounter for other preprocedural examination (principal)
CPT/HCPCS: 36415; 80053; 85025

== ENCOUNTER 2023-06-06 06:05 | Day surgery (SDC) | payer MEDICARE, SELFPAY ==
--- NOTE | 2023-06-06 | DI.RAD_ITS ---
Exam(s) XR FOOT RT COMPLETE EXAM: XR FOOT RT LIMITED CLINICAL HISTORY: Painful hammertoes, right second and third toe TECHNIQUE: 2D and realtime digital imaging was performed. CONTRAST MATERIAL: Refer to procedure report. COMPARISON: CR XR FOOT RT COMPLETE from 12/13/2022 FINDINGS: Fluoroscopy was provided for Dr. Fabian during the performance of a partial 2nd toe resection and kei ertoe repair of the 3rd toe. Please refer to the procedure report for complete details. Ka,r=0.01 mGy IMPRESSION: RADIATION DOSE DELIVERED: 0.0 117.7 0
[2023-06-06 06:20] VITALS: BP 128/84; PULSE 62; RESP 18; TEMP 36.5; O2SAT 98
[2023-06-06] MEDS: Lactated Ringers 1,000 ML 30 ML IV (06:57)
[2023-06-06] MEDS: Gabapentin 300 MG CAP PO (06:58)
[2023-06-06] MEDS: Celecoxib 200 MG CAP PO (06:58)
--- NOTE | 2023-06-06 07:18 | ANES.PREOP_ITS ---
General Info Date of Service Date Performed: 06/06/23 Height: 5 ft 7.5 in Weight: 81.1 kg Body Mass Index (BMI): 27.6 Surgical Procedure: Operation Date: 06/06/23 07:40 Proposed Procedure Side Surgeon p Toe Amputation, 2nd Toe Right Tiffany Fabian DPM s Arthroplasty 3rd Toe Right Tiffany Fabian DPM Meds Allergies and Home Medications Allergies Allergy/AdvReac Type Severity Reaction Status Date / Time atenolol AdvReac Intermediate near Verified 06/06/23 06:33 syncope tree pollen Allergy Intermediate Other (See Uncoded 06/06/23 06:33 Comment) Home Medication Medication Instructions Recorded aspirin 81 mg capsule 81 mg PO DAILY #30 caps 05/15/22 lisinopril 10 mg tablet 10 mg PO DAILY #90 tabs 06/24/22 atorvastatin 80 mg tablet 80 mg PO QHS #90 tabs 09/23/22 paroxetine HCl 20 mg tablet 20 mg PO DAILY #90 tabs 03/28/23 Current Visit Medications: Current Medications Generic Name Dose Route Start Last Admin Trade Name Freq PRN Reason Stop Dose Admin Celecoxib 200 mg 06/06/23 06:00 06/06/23 06:58 Celecoxib 200 Mg Cap PO 06/06/23 23:59 200 mg PREOP EILEEN Administration Gabapentin 300 mg 06/06/23 06:00 06/06/23 06:58 Gabapentin 300 Mg Cap PO 06/06/23 23:59 300 mg PREOP EILEEN Administration Ringer's Solution 1,000 mls @ 30 mls/hr 06/06/23 06:00 06/06/23 06:57 IV 06/06/23 23:59 30 mls/hr INFUSION EILEEN Administration Cefazolin Sodium/Dextrose 2 gm in 50 mls @ 100 mls/hr 06/06/23 06:00 Ancef Duplex IVPB 06/06/23 23:59 PREOP EILEEN IV Miscellaneous Supplies 1 each 06/06/23 06:00 Iv Access IV 06/06/23 23:59 DIRECTED EILEEN Sodium Chloride 0 ml 06/06/23 06:00 Normal Saline Flush 10 Ml Syr IV 06/06/23 23:59 PRN PRN Sodium Chloride 0 ml 06/06/23 06:00 Normal Saline 10 Ml Vial IJ 06/06/23 23:59 DIRECTED PRN Sterile Water 0 ml 06/06/23 06:00 Water,Injection,Sterile 10 Ml Vial IJ 06/06/23 23:59 DIRECTED PRN [facility] Active Problems Active Problems: Problem Status Onset Code Pre-op testing Z01.818 PAD (peripheral artery disease) I73.9 Skin lesion of left arm L98.9 Ulcer of right foot limited to breakdown of skin L97.511 Pain in right foot M79.671 Nuclear age-related cataract, left eye H25.12 RBBB I45.10 Toe pain, right M79.674 Toe pain, left M79.675 Hammer toe of right foot M20.41 Bunion of great toe of right foot 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, F06.31 History of right-sided carotid endarterectomy Z98.890 Carotid stenosis, right I65.21 Acute stroke due to stenosis of right carotid artery I63.231 Loss of balance R26.89 Suspected cerebrovascular accident R09.89 Sebaceous cyst L72.3 Peripheral neuropathy G62.9 Corns and callosities L84 Pain, foot M79.673 Nail dystrophy L60.3 Impacted cerumen, bilateral H61.23 Depressive disorder, not elsewhere classified 02/21/96 F32.9 Sensorineural hearing loss, bilateral 07/25/14 H90.3 Mood disturbance 11/23/16 R45.86 Other and unspecified hyperlipidemia 07/22/02 E78.5 Hearing loss 08/21/00 H91.90 Conductive hearing loss, external ear 07/25/14 H90.2 Coronary atherosclerosis of [place] coronary vessel 07/22/02 I25.10 Medical History Medical History COVID (~10/2022) Pneumonia Hospitalized with PNA, when? Syncope and collapse (~2011) Cardiac evaluation .. Surgical History Surgical History H/O local excision of skin lesion (02/07/23) L elbow seborrheic keratosis S/P carotid endarterectomy Right, 2022 H/O vasectomy H/O angioplasty Tobacco Smoking/Tobacco Use Status: Never Passive smoking exposure: No Second hand exposure: No Alcohol Alcohol Intake: current Alcohol intake frequency: 0-2 drinks per day Alcohol type: wine Substance Use Substance use: Never Substance use type: does not use Vital Signs and Lab Results Vital Signs Most Recent Vital Signs in EMR: Most Recent Vital Signs Temp Pulse Resp BP Pulse Ox 36.5 C 62 18 128/84 98 06/06/23 06:20 06/06/23 06:20 06/06/23 06:20 06/06/23 06:20 06/06/23 06:20 Lab Results Blood Type / Crossmatch: No Data to Display Complete Blood Count: White Blood Count 6.76 10^3/uL (4.4-10.8) 06/03/23 10:27 Red Blood Count 4.81 10^6/uL (4.36-5.78) 06/03/23 10:27 Hemoglobin 14.2 g/dL (13.5-17.5) 06/03/23 10:27 Hematocrit 41.8 % (40.0-50.0) 06/03/23 10:27 Platelet Count 218 10^3/uL (130-400) 06/03/23 10:27 Complete Metabolic Panel: Sodium 140 mmol/L (136-145) 06/03/23 10:27 Potassium 4.3 mmol/L (3.5-5.1) 06/03/23 10:27 Chloride 105 mmol/L (98-107) 06/03/23 10:27 Carbon Dioxide 28.5 mmol/L (21.0-32.0) 06/03/23 10:27 BUN 30 mg/dL (7-18) H 06/03/23 10:27 Creatinine 1.2 mg/dL (0.70-1.30) 06/03/23 10:27 Est GFR (CKD-EPI 2020) 61.52 (mL/min/1.73m2) 06/03/23 10:27 Calcium 8.8 mg/dL (8.5-10.1) 06/03/23 10:27 Albumin 3.4 g/dL (3.4-5.0) 06/03/23 10:27 Glucose 106 mg/dL (74-106) 06/03/23 10:27 Liver Function Panel: Alanine Aminotransferase (ALT/SGPT) 44 U/L (16-63) 06/03/23 10: 27 Aspartate Amino Transf (AST/SGOT) 29 U/L (15-37) 06/03/23 10:27 Coagulation Panel: INR International Normalized Ratio Pending 06/06/23 07:0 1 Prothrombin Time Pending 06/06/23 07:01 Cardiac Panel: No Data to Display Arterial Blood Gas: No Data to Display Venous Blood Gas: No Data to Display Pancreas Panel: No Data to Display Thyroid Panel: No Data to Display Infectious Disease: No Data to Display Blood Cultures: No Data to Display Toxicology Panel: No Data to Display Imaging and Studies Imaging and Studies Study information below may be from another EMR and interpreted by another provider. Please see original notes in EMR for more complete details. EKG Summary: Conclusion Sinus rhythm...normal P axis, V-rate 50- 99 Right bundle branch block...QRSd>120, terminal axis(90,270) 05/23/23 Stress Test Summary: Stress results: The rate-pressure product for the peak heart rate and blood pressure was 77374io Hg/min. Stress ECG: EXCERCISE TESTING ENDED IN 5 MINS, 50 SECS DUE TO FATIGUE. MAX HR WAS 128, 87% OF TARGET. HYPERTENSIVE BLOOD PRESSURE RESPONSE. METS: 7.05. ECTOPY: NONE NOTED. ANGINA: NO REPORTED CHEST PAIN OR PRESSURE. ISCHEMIA: ST CHANGES NOTED MINIMALLY IN V2, MORE PRONOUNCE IN V3. FUNCTIONAL CAPACITY: MILDLY DIMINISHED CAPACITY. Myocardial perfusion: Imaging information: gated. No myocardial perfusion defects noted. Ventricular Function (Wall Motion): The calculated left ventricular ejection fraction after stress: 56%. No left ventricular regional motion abnormality. 10/10/17 Echocardiogram Summary: Conclusion Normal left ventricular wall thickness and chamber size. Ejection fraction 55 to 60%. Wall motion is normal Right ventricle is grossly normal in size and systolic function Both atria are normal in size Aortic valve is sclerotic and trileaflet without stenosis or regurgitation There is no additional structural or hemodynamically significant valvular disease Mildly dilated ascending aorta measuring 3.55 cm 05/17/22 Anesthesia Assessment and Plan Anesthesia History Personal History: No History of Anesthesia Complications Family History: No Family History of Anesthesia Complications Exercise Tolerance Exercise Tolerance: Metabolic Equivalents<4 (unsteady gait) Pertinent Negatives Pertinent Negatives: No Symptoms of GERD (occ symptoms with food only), No Major Cardiovascular Symptoms or Complaints (hx of stent and RBBB), No Major Pulmonary Symptoms or Complaints (occ cough, chronic) and Other (stroke last year, some left-sided weakness) Cardiac & Pulmonary Exam Cardiac Exam: Normal S1/S2 Heart Sounds Pulmonary Exam: Clear Bilateral Breath Sounds Implantable Cardiac Device Does patient have a Pacemaker or an ICD?: No Airway Exam Known Difficult Airway: No Mallampati Class: 2 Mouth Opening: Normal (> 3cm) Thyromental Distance: Greater than 3 cm Neck Range of Motion: Full ROM Neck Circumference: Normal Teeth Condition: Normal Dentition ASA Classification ASA Score: ASA 3 Emergency Case?: No NPO Status NPO Status: NPO Clears >2 hours, Solids >8 hours Anesthesia Plan Resuscitation Status: Full Code Anesthesia Technique: General Anesthesia Airway Planned: Natural Airway Monitors Used: Standard Monitors
[2023-06-06 07:25] LABS: INR 1.1 (0.9-1.1); Prothrombin Time 10.8 sec (9.1-11.1)
[2023-06-06 07:34] VITALS: BMI 27.6
[2023-06-06] MEDS: ceFAZolin 2 GM/50 ML BAG IVPB (07:38)
[2023-06-06] MEDS: Lidocaine 1% Pres-Free 30 ML VIAL (08:12)
[2023-06-06] MEDS: Bupivacaine 0.25% Pres-Free 30 ML VIAL (08:54)
--- NOTE | 2023-06-06 09:09 | W.PM.DSUDISC ---
Date of service: 06/06/23 Time of Service: 09:09 Discharge Plan Disposition Patient Disposition: Home Condition: Stable Discharge Details Reason For Visit: surg Attending Provider: Tiffany Fabian Primary Care Provider: Earnest Olivarez Home Meds and New Rx's Prescriptions: No Action lisinopril 10 mg tablet 10 mg PO DAILY Qty: 90 3RF atorvastatin 80 mg tablet 80 mg PO QHS Qty: 90 3RF paroxetine HCl 20 mg tablet 20 mg PO DAILY Qty: 90 3RF aspirin 81 mg capsule 81 mg PO DAILY Qty: 30 0RF Discharge Instructions Equipment/Supplies: Partial Weight Bearing Crutches Activity:: Elevate Remove Dressings/Wound Care:: Do Not Remove Shower/Bathe:: Cover Diet:: As Tolerated DS: Diagnosis Discharge Diagnosis (1) Toe pain, right: Status: Acute (2) Hammer toe of right foot: Status: Acute
[2023-06-06 09:10] VITALS: BP 124/72; PULSE 53; RESP 16; TEMP 36; O2SAT 97
--- NOTE | 2023-06-06 09:11 | W.PM.OP ---
Date of service: 06/06/23 Time of Service: 08:00 Operative Note Operative Note DATE OF PROCEDURE: 06/06/23 PRE-OP DIAGNOSIS: Painful hammertoe right second and third toe, right foot POST-OP DIAGNOSIS: same PROCEDURE: 1. Arthrodesis right third toe. 2. Amputation right second toe SURGEON: Tiffany Fabian Refer to Anesthesia Record ESTIMATED BLOOD LOSS: 0 PATHOLOGY: none sent TOURNIQUET TIME: 52 COMPLICATIONS: None Patient was transported to: same day Patient's condition: stable Implants: Arthrex trim it pin 1.5 Indications: 78-year-old male patient with painful hammertoes to the right foot has been seen in office over the course of time. Patient has recently developed a superficial thickness ulceration to the tip of the right third toe does report pain to the right second toe. Patient has exhausted all conservative treatment modalities at this time. I discussed the procedure including an amputation of the right second toe and an arthrodesis of the right third toe to help alleviate pain to the right second and prevent deeper ulceration and infection to the right third toe. Patient understands and agrees. Discussed all risks benefits and possible complications of the procedure including but not limited to delayed healing, nonhealing, dehiscence, infection, infection to bone, hematoma formation, seroma formation, flail toe, floating toe, nonunion, malunion, delayed union at the arthrodesis site site following bleeding, hematoma formation, seroma formation, Pain, CRPS, DVT, PE, stroke, AK or with anesthesia. Patient understands and symptoms or risks. Consent form signed reviewed in chart. Medical clearance and. No contraindications noted to the procedure at this time. Findings: Severe contracture noted at the level of the PIPJ of the right second toe. Hammertoe noted to the right third toe with distal tip hyperkeratosis. Procedure Description: Patient was reevaluated and be improving. Site was marked in preop holding. Consent form signed reviewed in chart medical signed reviewed in chart. Patient was brought to the operating room placed on the operating table in supine position with the anesthesia team. After induction of anesthesia right ankle tourniquet was applied about the right lower extremity. A local block consisting of 10 mL 1% lidocaine plain was injected in the proximal digital block fashion. Next, the right lower extremity was scrubbed prepped and draped in the usual aseptic manner. Attention was directed to the right second toe where an incision was planned using skin markers with 2 semielliptical incisions running dorsal to plantar The incision was then made using a sterile #15 blade incision was then deepened through the skin and soft tissue to the level of bone of soft tissue attachments were reflected retracted proximally and distally away from the bone the periosteum was then paid from the base of the proximal phalanx. Next using a saw the base of the proximal phalanx was resected and passed from the operative field was amputated right second toe. This area was then flushed with copious amounts of sterile saline. Deep sutures were made using 3-0 Vicryl the skin was then reapproximated using 4-0 nylon. Attention was then directed to the dorsal aspect of the right third toe where a 3 to 4 cm linear longitudinal incision was planned using standard markers. Incision was then made using sterile #15 blade. Incision was then deepened through skin the patient's tissue. And reflected medially and laterally avoiding all neurovascular structures. Next, exposure was obtained to the toe at the level of the PIPJ and using sterile #15 blade the extensor tendon was then transected transversely and reflected proximally and distally, next the lateral and medial collateral ligaments were then resected as well using sterile #15 blade thus providing excellent exposure to the PIPJ. Using a saw either end of the PIPJ was then resected and passed from the operative field thus reducing the contracture. Next, an Arthrex treatment pin was then inserted at either the joint following manufactures guidelines. The site was irrigated with copious amounts of sterile saline. The joint was then reduced. Further contracture was noted to be remaining at this time and a transverse capsulotomy was performed medial and lateral at the level of the the metatarsophalangeal joint the contracture was then noted to be reduced. Next the extensor tendon was then reapproximated using 3-0 Vicryl the skin was then reapproximated and coapted using 3-0 Vicryl and 4-0 nylon. The tourniquet was then deflated and a postoperative injection consisting 10 mL 0.25% Marcaine plain was then injected. Dressings were then applied with Xeroform gauze, 4 x 4 with Betadine splint, 4 x 4, Kerlix and an Lars wrap. Patient tolerated the procedure and anesthesia well advance and stable vascular status intact to the right foot with capillary refill noted to the right second and third toes. A surgical shoe was then applied. Patient was transferred to PACU for further monitoring. Patient is to follow-up with me in office on . He is to keep right lower extremity elevated at all times. I recommend nonweightbearing to the right lower extremity in the splint heel for transfers. Patient was dispensed a walker prior to discharge.
--- NOTE | 2023-06-06 09:32 | DI.RAD_ITS ---
Exam(s) XR FOOT RT LIMITED EXAM: XR FOOT RT LIMITED CLINICAL HISTORY: Painful hammertoes, right second and third toe TECHNIQUE: 2D and realtime digital imaging was performed. CONTRAST MATERIAL: Refer to procedure report. COMPARISON: CR XR FOOT RT COMPLETE from 12/13/2022 CR XR FOOT LT COMPLETE from 12/13/2022 FINDINGS: Fluoroscopy was provided for Dr. Fabian during the performance of a 2nd toe resection and hammertoe r epair. Please refer to the procedure report for complete details. Ka,r=0.01 mGy IMPRESSION: RADIATION DOSE DELIVERED: 0.0 117.7 0
[2023-06-06 09:35] VITALS: BP 111/72; PULSE 52; RESP 18; TEMP 36.2; O2SAT 94
--- NOTE | 2023-06-06 10:45 | W.ANESPOSTOP ---
Postoperative Evaluation Date, Time and Location Date Performed: 06/06/23 Time Performed: 10:45 Patient Location: Day Surgery Unit Vital Signs Most Recent Imported Vital Signs: Most Recent Vital Signs Temp Pulse Resp BP Pulse Ox 36.2 C L 52 L 18 111/72 94 06/06/23 09:35 06/06/23 09:35 06/06/23 09:35 06/06/23 09:35 06/06/23 09:35 Pain Score Most Recent Pain Score: Most Recent Pain Score Pain Level 0 06/06/23 09:35 Assessment Mental Status: Awake (Alert & Oriented to Patient Baseline) Airway and Respiratory Function: Patent airway with normal (patient baseline) respiratory exam Cardiovascular Function: Hemodynamically Stable Hydration Status: Adequately Hydrated Nausea & Vomiting: No Nausea or Vomiting Pain: Pt. Denies Any Pain Peripheral Nerve Block: Patient did not receive a nerve block
== END 2023-06-06 11:20 | disposition home or self-care (01) ==
PROVIDERS: PCP Family Medicine; Visit Provider Podiatrist
PROC: (CPT 28285; principal; 2023-06-06 07:30)
PROC: (CPT 28285; 2023-06-06 07:30)
DX: M20.41 Other hammer toe(s) (acquired), right foot (principal); Z79.82 Long term (current) use of aspirin; I73.9 Peripheral vascular disease, unspecified; I45.10 Unspecified right bundle-branch block
CPT/HCPCS: 28285; 28825; 00123; 76000; 73620; 73630; 85610; J0665; J0690; J2001; J2704

== ENCOUNTER → 2023-06-09 02:20 | Outpatient (CLI) | payer MEDICARE, SELFPAY ==
--- NOTE | 2023-06-09 09:55 | DI.RAD_ITS ---
Exam(s) XR FOOT RT COMPLETE EXAM: XR FOOT RT COMPLETE CLINICAL HISTORY: post op,hammer toe rt foot, m20.41. TECHNIQUE: 2D digital imaging was performed of the right foot. Three images were obtained. AP, obl ique and lateral views were obtained. COMPARISON: CR XR FOOT RT COMPLETE from 06/06/2023 CR XR FOOT RT LIMITED from 06/06/2023 FINDINGS: BONES: No acute fracture is present. No bony destructive lesion is seen. There again seen postsurgica l changes of resection of the 2nd toe with the base of the proximal phalanx remaining. There also po stsurgical changes of the PIP joint of the 3rd toe. There is a small plantar calcaneal spur. There are hammertoe deformities of the 4th and 5th toes. JOINTS: No dislocation present. There are degenerative changes of the foot particularly at the 1st MT P joint. SOFT TISSUE: Vascular calcifications are present. There is soft tissue swelling seen in the forefoot presumably related to the recent surgery. IMPRESSION: Stable postsurgical changes in the foot. Additional incidental findings in the foot as described abo ve. DATA REPOSITORY: RADIATION DOSE DELIVERED:
== END ==
PROVIDERS: PCP Family Medicine; Visit Provider Podiatrist
DX: M20.41 Other hammer toe(s) (acquired), right foot (principal)
CPT/HCPCS: 73630

== ENCOUNTER → 2023-06-16 10:30 | Outpatient (BNVA) | payer MEDICARE, SELFPAY | PROVIDERS: PCP Family Medicine; Referring Provider Family Medicine; Visit Provider Podiatrist | DX: M20.41 Other hammer toe(s) (acquired), right foot; M79.675 Pain in left toe(s); M79.674 Pain in right toe(s); M21.611 Bunion of right foot; L97.511 Non-pressure chronic ulcer of other part of right foot limited to breakdown of skin; I73.9 Peripheral vascular disease, unspecified | CPT/HCPCS: 99024 ==

== ENCOUNTER → 2023-06-30 14:55 | Outpatient (BNVA) | payer MEDICARE, SELFPAY | PROVIDERS: PCP Family Medicine; Referring Provider Family Medicine; Visit Provider Podiatrist | DX: M20.41 Other hammer toe(s) (acquired), right foot; M79.675 Pain in left toe(s); M79.674 Pain in right toe(s); M21.611 Bunion of right foot; L97.511 Non-pressure chronic ulcer of other part of right foot limited to breakdown of skin; I73.9 Peripheral vascular disease, unspecified | CPT/HCPCS: 99024 ==

== ENCOUNTER → 2023-07-14 03:54 | Outpatient (CLI) | payer MEDICARE, SELFPAY ==
--- NOTE | 2023-07-14 08:00 | DI.RAD_ITS ---
Exam(s) XR FOOT RT COMPLETE EXAM: XR FOOT RT COMPLETE CLINICAL HISTORY: post op M20.41 HAMMER TOE RT FOOT. TECHNIQUE: 2D digital imaging was performed. Three views. COMPARISON: CR XR FOOT RT COMPLETE from 06/09/2023 FINDINGS: BONES: No acute fracture is present. No bony destructive lesion is seen. Prior resection of the david rity of the 2nd toe. JOINTS: No dislocation present. Moderate hallux valgus. Flexion deformity at the 1st interphalangea l joint. Hammertoe deformities of the 3rd and 4th toes. SOFT TISSUE: Normal. IMPRESSION: Post surgical and degenerative changes. Hammertoe deformities. DATA REPOSITORY: RADIATION DOSE DELIVERED:
== END ==
PROVIDERS: PCP Family Medicine; Visit Provider Podiatrist
DX: M20.41 Other hammer toe(s) (acquired), right foot (principal)
CPT/HCPCS: 73630

== ENCOUNTER → 2023-07-28 13:19 | Outpatient (BNVA) | payer MEDICARE, SELFPAY | PROVIDERS: PCP Family Medicine; Referring Provider Family Medicine; Visit Provider Podiatrist | DX: Z98.890 Other specified postprocedural states (principal); M20.41 Other hammer toe(s) (acquired), right foot; M79.674 Pain in right toe(s); M79.675 Pain in left toe(s); M21.611 Bunion of right foot; L97.511 Non-pressure chronic ulcer of other part of right foot limited to breakdown of skin; I73.9 Peripheral vascular disease, unspecified | CPT/HCPCS: 99024 ==

== ENCOUNTER → 2023-08-11 00:07 | Outpatient (CLI) | payer MEDICARE, SELFPAY ==
--- NOTE | 2023-08-11 08:45 | DI.RAD_ITS ---
Exam(s) XR FOOT RT COMPLETE EXAM: XR FOOT RT COMPLETE CLINICAL HISTORY: post op, rt toe pain, M79.674. TECHNIQUE: 2D digital imaging was performed. Three views. COMPARISON: CR XR FOOT RT COMPLETE from 07/14/2023 FINDINGS: Exam is limited due to presence of a sock. BONES: Amputation of the majority of the 2nd toe to the base of the proximal phalanx. Osteotomy note d at 3rd MTP joint. No acute fracture is present. No bony destructive lesion is seen. Tiny plantar calcaneal spur. JOINTS: No dislocation present. Moderate hallux valgus. Mild degenerative changes 1st MTP joint. H ammertoe deformities. Plantar arch is maintained. SOFT TISSUE: Focal radiopacity seen in the soft tissues posterior to the calcaneal tuberosity. Clini abbie correlation recommended. Vascular calcifications noted. IMPRESSION: Postsurgical and degenerative changes. DATA REPOSITORY: RADIATION DOSE DELIVERED:
== END ==
PROVIDERS: PCP Family Medicine; Visit Provider Podiatrist
DX: M79.674 Pain in right toe(s) (principal); Z98.890 Other specified postprocedural states
CPT/HCPCS: 73630

== ENCOUNTER → 2023-08-24 15:26 | Outpatient (BNVA) | payer MEDICARE, SELFPAY | PROVIDERS: PCP Family Medicine; Referring Provider Family Medicine; Visit Provider Podiatrist | DX: L97.511 Non-pressure chronic ulcer of other part of right foot limited to breakdown of skin (principal); S90.821A Blister (nonthermal), right foot, initial encounter; Z98.890 Other specified postprocedural states; M20.41 Other hammer toe(s) (acquired), right foot; M79.674 Pain in right toe(s); M79.675 Pain in left toe(s); M21.611 Bunion of right foot; I73.9 Peripheral vascular disease, unspecified | CPT/HCPCS: 99213 ==

== ENCOUNTER → 2023-09-05 09:08 | Outpatient (BNVA) | payer MEDICARE, SELFPAY | PROVIDERS: PCP Family Medicine; Referring Provider Family Medicine; Visit Provider Podiatrist | DX: L97.511 Non-pressure chronic ulcer of other part of right foot limited to breakdown of skin (principal); M21.611 Bunion of right foot; M20.41 Other hammer toe(s) (acquired), right foot | CPT/HCPCS: 99213 ==

== ENCOUNTER → 2023-09-29 12:58 | Outpatient (BNVA) | payer MEDICARE, SELFPAY | PROVIDERS: PCP Family Medicine; Referring Provider Family Medicine; Visit Provider Podiatrist | DX: Z98.890 Other specified postprocedural states (principal); L97.511 Non-pressure chronic ulcer of other part of right foot limited to breakdown of skin; M21.611 Bunion of right foot; M20.41 Other hammer toe(s) (acquired), right foot | CPT/HCPCS: 99024 ==

== ENCOUNTER 2023-09-30 07:59 | Day surgery (SDC) | payer MEDICARE, SELFPAY ==
[2023-09-30 08:31] VITALS: BP 122/75; PULSE 70; RESP 16; TEMP 36.3; O2SAT 97
[2023-09-30] MEDS: Tropicam./Phenyleph. (1/2.5%) 5 ML BTL OS ×3 (08:37→08:51)
[2023-09-30] MEDS: Tropicam./Phenyleph. (1/2.5%) 5 ML BTL (08:37)
--- NOTE | 2023-09-30 08:44 | W.ANESPRE ---
General Info Date of Service Date Performed: 09/30/23 Height: 5 ft 7.5 in Weight: 83.7 kg Body Mass Index (BMI): 28.4 Surgical Procedure: Operation Date: 09/30/23 10:40 Proposed Procedure Side Surgeon p Cataract Extraction with IOL Implant Left Rishi Dudley MD Meds Allergies and Home Medications Allergies Allergy/AdvReac Type Severity Reaction Status Date / Time atenolol AdvReac Intermediate near Verified 09/30/23 08:22 syncope tree pollen Allergy Intermediate Other (See Uncoded 09/30/23 08:22 Comment) Home Medication ?Medication ?Instructions ?Recorded aspirin 81 mg capsule 81 mg PO DAILY #30 caps 05/15/22 paroxetine HCl 20 mg tablet 20 mg PO DAILY #90 tabs 03/28/23 lisinopril 10 mg tablet 10 mg PO DAILY #90 tabs 08/08/23 atorvastatin 80 mg tablet 80 mg PO QHS #90 tabs 09/12/23 Current Visit Medications: Current Medications Generic Name Dose Route Start Last Admin Trade Name Freq PRN Reason Stop Dose Admin Acetaminophen 1,000 mg 09/30/23 06:00 Acetaminophen 500 Mg Tab PO 10/30/23 05:59 Q4H PRN PRN Balanced Salt Solution 500 ml 09/30/23 06:00 Balanced Salt Soln.-Plus 500 Ml Bag OP 10/30/23 05:59 DIRECTED [facility] Miscellaneous Medication 0 ml 09/30/23 06:00 Prednisolone 1%, Moxifloxacin 0.5%, Bromfenac 0.09% 5.6ml Btl OS 10/30/23 05:59 DIRECTED [facility] Miscellaneous Medication 0 ml 09/30/23 06:00 09/30/23 08:43 Tropicam./Phenyleph. (1/2.5%) 5 Ml Btl OS 10/30/23 05:59 1 drp DIRECTED EILEEN Administration Tetracaine HCl 0 ml 09/30/23 06:00 Tetracaine 0.5% 4 Ml Btl OS 10/30/23 05:59 DIRECTED EILEEN PFSH Active Problems Active Problems: Problem Status Onset Code Blister (nonthermal), right foot, initial encounter Acute S90.821A Pre-op testing Acute Z01.818 Follow up Acute Z09 PAD (peripheral artery disease) Acute I73.9 Skin lesion of left arm Acute L98.9 Ulcer of right foot limited to breakdown of skin Acute L97.511 Pain in right foot Acute M79.671 Nuclear age-related cataract, left eye Acute H25.12 RBBB Acute I45.10 Toe pain, right Acute M79.674 Toe pain, left Acute M79.675 Hammer toe of right foot Acute M20.41 Bunion of great toe of right foot Acute 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) Acute I69.398, F06.31 History of right-sided carotid endarterectomy Acute Z98.890 Carotid stenosis, right Acute I65.21 Acute stroke due to stenosis of right carotid artery Acute I63.231 Loss of balance Acute R26.89 Suspected cerebrovascular accident Acute R09.89 Sebaceous cyst Acute L72.3 Peripheral neuropathy Acute G62.9 Corns and callosities Acute L84 Pain, foot Acute M79.673 Nail dystrophy Acute L60.3 Impacted cerumen, bilateral Acute H61.23 Depressive disorder, not elsewhere classified Chronic 02/21/96 F32.9 Sensorineural hearing loss, bilateral Acute 07/25/14 H90.3 Mood disturbance Acute 11/23/16 R45.86 Other and unspecified hyperlipidemia Acute 07/22/02 E78.5 Hearing loss Acute 08/21/00 H91.90 Conductive hearing loss, external ear Acute 07/25/14 H90.2 Coronary atherosclerosis of [place] coronary vessel Acute 07/22/02 I25.10 Medical History Medical History COVID (~10/2022) Pneumonia Hospitalized with PNA, when? Syncope and collapse (~2011) Cardiac evaluation .. Surgical History Surgical History H/O local excision of skin lesion (02/07/23) L elbow seborrheic keratosis S/P carotid endarterectomy Right, 2022 H/O vasectomy H/O angioplasty Tobacco Smoking/Tobacco Use Status: Never Passive smoking exposure: No Second hand exposure: No Alcohol Alcohol Intake: current Alcohol intake frequency: 0-2 drinks per day Alcohol type: wine Substance Use Substance use: Never Substance use type: does not use Details: alcohol: t-1, 200 ml daily Vital Signs and Lab Results Vital Signs Most Recent Vital Signs in EMR: Most Recent Vital Signs Temp Pulse Resp BP Pulse Ox 36.3 C L 70 16 122/75 97 09/30/23 08:31 09/30/23 08:31 09/30/23 08:31 09/30/23 08:31 09/30/23 08:31 Lab Results Blood Type / Crossmatch: No Data to Display Complete Blood Count: No Data to Display Complete Metabolic Panel: No Data to Display Liver Function Panel: No Data to Display Coagulation Panel: No Data to Display Cardiac Panel: No Data to Display Arterial Blood Gas: No Data to Display Venous Blood Gas: No Data to Display Pancreas Panel: No Data to Display Thyroid Panel: No Data to Display Infectious Disease: No Data to Display Blood Cultures: No Data to Display Toxicology Panel: No Data to Display Imaging and Studies Imaging and Studies Study information below may be from another EMR and interpreted by another provider. Please see original notes in EMR for more complete details. EKG Summary: Conclusion Sinus rhythm...normal P axis, V-rate 50- 99 Right bundle branch block...QRSd>120, terminal axis(90,270) 05/23/23 Stress Test Summary: Stress results: The rate-pressure product for the peak heart rate and blood pressure was 36669ee Hg/min. Stress ECG: EXCERCISE TESTING ENDED IN 5 MINS, 50 SECS DUE TO FATIGUE. MAX HR WAS 128, 87% OF TARGET. HYPERTENSIVE BLOOD PRESSURE RESPONSE. METS: 7.05. ECTOPY: NONE NOTED. ANGINA: NO REPORTED CHEST PAIN OR PRESSURE. ISCHEMIA: ST CHANGES NOTED MINIMALLY IN V2, MORE PRONOUNCE IN V3. FUNCTIONAL CAPACITY: MILDLY DIMINISHED CAPACITY. Myocardial perfusion: Imaging information: gated. No myocardial perfusion defects noted. Ventricular Function (Wall Motion): The calculated left ventricular ejection fraction after stress: 56%. No left ventricular regional motion abnormality. 10/10/17 Echocardiogram Summary: Conclusion Normal left ventricular wall thickness and chamber size. Ejection fraction 55 to 60%. Wall motion is normal Right ventricle is grossly normal in size and systolic function Both atria are normal in size Aortic valve is sclerotic and trileaflet without stenosis or regurgitation There is no additional structural or hemodynamically significant valvular disease Mildly dilated ascending aorta measuring 3.55 cm 05/17/22 Anesthesia Assessment and Plan Anesthesia History Personal History: No History of Anesthesia Complications Family History: No Family History of Anesthesia Complications Exercise Tolerance Exercise Tolerance: Metabolic Equivalents<4 (unsteady gait) Cardiac & Pulmonary Exam Cardiac Exam: Normal S1/S2 Heart Sounds Pulmonary Exam: Clear Bilateral Breath Sounds Implantable Cardiac Device Does patient have a Pacemaker or an ICD?: No Airway Exam Known Difficult Airway: No Mallampati Class: 2 Mouth Opening: Normal (> 3cm) Thyromental Distance: Greater than 3 cm Neck Range of Motion: Full ROM Neck Circumference: Normal Teeth Condition: Normal Dentition ASA Classification ASA Score: ASA 3 Emergency Case?: No NPO Status NPO Status: NPO Clears >2 hours, Solids >8 hours Anesthesia Plan Resuscitation Status: Full Code Anesthesia Technique: MAC Anesthesia Airway Planned: Natural Airway Monitors Used: Standard Monitors
[2023-09-30 09:03] VITALS: BMI 28.4
[2023-09-30] MEDS: Lidocaine 1% Pres-Free 5 ML VIAL (10:11)
[2023-09-30] MEDS: Duovisc Viscoelastic System EACH 1 EACH (10:13)
[2023-09-30] MEDS: Balanced Salt Soln.-PLUS 500 ML BAG OP (10:13)
[2023-09-30] MEDS: Povidone-Iodine Ophth 30 ML BTL (10:13)
[2023-09-30] MEDS: Tetracaine 0.5% 4 ML BTL OS (10:14)
[2023-09-30] MEDS: Prednisolone 1%, Moxifloxacin 0.5%, Bromfenac 0.09% 5.6ML BTL OS (10:14)
[2023-09-30] MEDS: Trypan Blue 0.06% 0.5 ML SYR (10:15)
--- NOTE | 2023-09-30 10:37 | W.PM.DSUDISC ---
Date of service: 09/30/23 Time of Service: 10:38 Discharge Plan Disposition Patient Disposition: Home Discharge Details Attending Provider: Rishi Dudley Primary Care Provider: Earnest Olivarez Home Meds and New Rx's Prescriptions: No Action atorvastatin 80 mg tablet 80 mg PO QHS Qty: 90 3RF paroxetine HCl 20 mg tablet 20 mg PO DAILY Qty: 90 3RF lisinopril 10 mg tablet 10 mg PO DAILY Qty: 90 3RF aspirin 81 mg capsule 81 mg PO DAILY Qty: 30 0RF Discharge Instructions Stand Alone Forms: DSU Post-Op Cataract, Radha Menezes (DSU) Discharge Orders Discharge Orders: Discharge Order (Routine); Ordered 09/30/23 Ordered By: Rishi Dudley
--- NOTE | 2023-09-30 10:38 | W.PM.OP ---
Date of service: 09/30/23 Time of Service: 10:38 Operative Note Operative Note DATE OF PROCEDURE: 09/30/23 PRE-OP DIAGNOSIS: Dense nuclear cataract, left eye POST-OP DIAGNOSIS: same PROCEDURE: Cataract extraction using phacoemulsification with intraocular lens implant, left eye SURGEON: Rishi Dudley ANESTHESIA TYPE: Local By Surgeon and MAC Refer to Anesthesia Record PATHOLOGY: none sent COMPLICATIONS: None Patient was transported to: same day Patient's condition: stable Implants: Ravi and Ravi Tecnis Eyhance [id number] Indications: Progressive decreased vision due to cataract, left eye Procedure Description: CATARACT SURGERY OPERATIVE REPORT PREOPERATIVE DIAGNOSIS: 1. Dense nuclear cataract, left eye POSTOPERATIVE DIAGNOSIS: Same OPERATION: 1. Cataract extraction using phacoemulsification with posterior chamber intraocular lens implant, left eye. IOL: IOL Supervisor Remelt/Model: Ravi & Ravi Tecnis Eyhance DIB00 IOL Power: + 24.0 diopters IOL Serial Number: [id number] Optic Diameter: 6.0 mm Haptic/Overall Diameter: 13.0 mm PHACO INFO: [employer] Vision System with OZil and Active Fluidics Cumulative Dispersed Energy (CDE): 25.71 seconds SURGEON: Rishi Dudley MD, TERESA ANESTHESIA: Monitored A 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 He has developed a dense nuclear cataract in the left eye and desires cataract surgery there in attempt to improve and maximize his vision. The option of cataract surgery was offered to the patient and he wished to proceed. See office notes for detailed information. PROCEDURE: The correct surgical eye was identified and marked as the left eye and the pupil was dilated in the preoperative area using mydriatics and cycloplegics. The dilated pupil size was 6.0 mm. The patient elected to proceed without oral sedation. The patient was brought to the operating room where cardiopulmonary monitoring was instituted and surgical time-out was performed, confirming the correct operative eye and IOL power. Topical anesthesia was administered and ophthalmic povidone-iodine 5% was instilled into the conjunctival fornices. The mitzi-ocular area was prepped with Betadine 10% solution and draped in the usual sterile fashion for intraocular surgery, including an aperture drape. A Tegaderm transparent film dressing was cut in half and used to cover the lashes and lid margins. Care was taken to sequester the lashes and lid margins under the Tegaderm dressing. A lid speculum was placed between the lids of the operative eye and the Brant Lux[employer] Revalia operating microscope was maneuvered into position. Saige scissors were then used to make a conjunctival buttonhole approximately 6mm posterior to the limbus in the inferonasal quadrant. Blunt dissection was carried out to expose bare sclera, and a blunt-tipped sub-tenon?s anesthesia cannula was introduced and passed posteriorly along the globe where non-preserved plain lidocaine was injected into posterior sub-Tenon?s space. A sideport knife was used to make a paracentesis port. VisionBlue was injected into the anterior chamber and allowed to sit for 30 seconds. Intraocular phenylephrine/lidocaine was injected into the anterior chamber.. The anterior chamber was filled with viscoelastic. A keratome knife was used to construct a 2-plane near-clear corneal tunnel extending 2.0mm into clear cornea. A flap was raised on the anterior capsule and capsulorhexis forceps were used to complete a continuous curvilinear capsulorhexis of 5.0 mm. Balanced salt solution was then used to perform cortical cleaving hydrodissection and nuclear hydrodelineation until the lens could be freely rotated within the capsular bag. The lens nucleus was then disassembled and removed within the capsular bag and iris plane using phacoemulsification. Residual cortical material was removed using the irrigation/aspiration handpiece. The posterior capsule was carefully polished to remove as much residual lens epithelial cells as safely possible. The capsular bag was then inflated and the anterior chamber deepened with viscoelastic. The lens implant described above was inserted into the capsular bag using the Ravi and Ravi Simplicity pre-loaded injector. A Kuglen hook was used to dial the IOL into position. Residual viscoelastic was then removed first from posterior to the IOL, then from the anterior chamber using the I/A handpiece. The lens implant was noted to center nicely within the capsular bag. The incisions were stromally hydrated, and the anterior chamber was reformed using BSS. Then 0.5cc of moxifloxacin 1.0mg/ml were injected into the capsular bag and anterior chamber. The incisions were checked with a Weck spear and found to be secure. Several drops of ophthalmic povidone-iodine 5% were then applied to the eye followed by two drops of Imprimis combination prednisolone/moxifloxacin/nepafenac solution. The drapes were removed and a clear plastic protective eye shield was placed over the eye. The patient was then returned to Same Day Surgery in stable condition.
[2023-09-30 10:40] VITALS: BP 140/87; PULSE 67; RESP 16; TEMP 36.3; O2SAT 96
--- NOTE | 2023-09-30 10:53 | W.ANESPOSTOP ---
Postoperative Evaluation Date, Time and Location Date Performed: 09/30/23 Time Performed: 10:42 Patient Location: Day Surgery Unit Vital Signs Most Recent Imported Vital Signs: Most Recent Vital Signs Temp Pulse Resp BP Pulse Ox 36.3 C L 67 16 140/87 96 09/30/23 10:40 09/30/23 10:40 09/30/23 10:40 09/30/23 10:40 09/30/23 10:40 Pain Score Most Recent Pain Score: Most Recent Pain Score Pain Level 0 09/30/23 10:40 Assessment Mental Status: Awake (Alert & Oriented to Patient Baseline) Airway and Respiratory Function: Patent airway with normal (patient baseline) respiratory exam Cardiovascular Function: Hemodynamically Stable Hydration Status: Adequately Hydrated Nausea & Vomiting: No Nausea or Vomiting Pain: Pt. Denies Any Pain Peripheral Nerve Block: Patient did not receive a nerve block
== END 2023-09-30 11:07 | disposition home or self-care (01) ==
LOC: SUR 08:00
PROVIDERS: PCP Family Medicine; Visit Provider Ophthalmology
PROC: (CPT 66984; principal; 2023-09-30 10:30)
DX: H25.12 Age-related nuclear cataract, left eye (principal)
CPT/HCPCS: 66984; 00123; V2632; J2003

== ENCOUNTER → 2023-10-25 15:00 | Outpatient (BNVA) | payer MEDICARE, SELFPAY | PROVIDERS: PCP Family Medicine; Referring Provider Family Medicine; Visit Provider Podiatrist | DX: Z98.890 Other specified postprocedural states; S90.414A Abrasion, right lesser toe(s), initial encounter; X58.XXXA Exposure to other specified factors, initial encounter; L97.511 Non-pressure chronic ulcer of other part of right foot limited to breakdown of skin; L60.3 Nail dystrophy; L60.2 Onychogryphosis; B35.1 Tinea unguium; R60.0 Localized edema; R20.8 Other disturbances of skin sensation; R09.89 Other specified symptoms and signs involving the circulatory and respiratory systems; L65.9 Nonscarring hair loss, unspecified; L85.8 Other specified epidermal thickening; M21.611 Bunion of right foot; M20.11 Hallux valgus (acquired), right foot; M20.12 Hallux valgus (acquired), left foot; M20.41 Other hammer toe(s) (acquired), right foot; M20.42 Other hammer toe(s) (acquired), left foot; I73.89 Other specified peripheral vascular diseases | CPT/HCPCS: 11721 ==

== ENCOUNTER → 2024-02-02 13:27 | Outpatient (BNVA) | payer MEDICARE, SELFPAY | PROVIDERS: PCP Family Medicine; Referring Provider Family Medicine; Visit Provider Podiatrist | DX: L60.3 Nail dystrophy (principal); B35.1 Tinea unguium; I73.89 Other specified peripheral vascular diseases; M79.671 Pain in right foot; M79.672 Pain in left foot; L84 Corns and callosities | CPT/HCPCS: 11056; 11721 ==

== ENCOUNTER → 2024-06-07 13:15 | Outpatient (BNVA) | payer MEDICARE, SELFPAY | PROVIDERS: PCP Family Medicine; Referring Provider Family Medicine; Visit Provider Podiatrist | DX: L60.3 Nail dystrophy (principal); B35.1 Tinea unguium; I73.89 Other specified peripheral vascular diseases; R09.89 Other specified symptoms and signs involving the circulatory and respiratory systems; R20.8 Other disturbances of skin sensation; L65.9 Nonscarring hair loss, unspecified; I83.93 Asymptomatic varicose veins of bilateral lower extremities; R60.0 Localized edema; M20.11 Hallux valgus (acquired), right foot; M20.12 Hallux valgus (acquired), left foot; M20.41 Other hammer toe(s) (acquired), right foot; M20.42 Other hammer toe(s) (acquired), left foot; L85.8 Other specified epidermal thickening; L60.2 Onychogryphosis | CPT/HCPCS: 11056; 11721 ==

== ENCOUNTER → 2024-10-04 13:23 | Outpatient (BNVA) | payer MEDICARE, SELFPAY | PROVIDERS: PCP Family Medicine; Referring Provider Family Medicine; Visit Provider Podiatrist | DX: L60.3 Nail dystrophy (principal); B35.1 Tinea unguium; L84 Corns and callosities; I73.89 Other specified peripheral vascular diseases; R09.89 Other specified symptoms and signs involving the circulatory and respiratory systems; R20.8 Other disturbances of skin sensation; L65.9 Nonscarring hair loss, unspecified; I83.93 Asymptomatic varicose veins of bilateral lower extremities; R60.0 Localized edema; M20.41 Other hammer toe(s) (acquired), right foot; M20.42 Other hammer toe(s) (acquired), left foot; Z98.890 Other specified postprocedural states; L85.8 Other specified epidermal thickening; L60.2 Onychogryphosis | CPT/HCPCS: 11056; 11721 ==

== ENCOUNTER → 2024-12-06 13:29 | Outpatient (BNVA) | payer MEDICARE, SELFPAY | PROVIDERS: PCP Family Medicine; Referring Provider Family Medicine; Visit Provider Podiatrist | DX: L60.3 Nail dystrophy (principal); B35.1 Tinea unguium; I73.89 Other specified peripheral vascular diseases; L84 Corns and callosities; R09.89 Other specified symptoms and signs involving the circulatory and respiratory systems; R20.8 Other disturbances of skin sensation; L65.9 Nonscarring hair loss, unspecified; I83.93 Asymptomatic varicose veins of bilateral lower extremities; R60.0 Localized edema; M20.41 Other hammer toe(s) (acquired), right foot; M20.42 Other hammer toe(s) (acquired), left foot; L85.8 Other specified epidermal thickening; L60.2 Onychogryphosis | CPT/HCPCS: 11056 ==